=== PATIENT | female | born 1940 | race African-American/Black ===

== ENCOUNTER 2016-12-19 18:39 | Inpatient (IN) | payer MEDICARE, BC, OTHER ==
[2016-12-19] MEDS ORDERED: ACETAMINOPHEN 325 MG TABLET PO PRN (18:42)
[2016-12-19] MEDS ORDERED: ONDANSETRON HCL INJ/PF 4 MG/2 ML SDV IV PRN (18:42)
[2016-12-19] MEDS ORDERED: ONDANSETRON 4 MG TAB.RAPDIS PO PRN (18:42)
[2016-12-19] MEDS ORDERED: IPRATROPIUM/ALBUTEROL 0.5-2.5 MG/3 ML AMPUL NEB PRN (18:42)
--- NOTE | 2016-12-19 19:27 | PDOC H&P ---
History of Present Illness Admission Date/PCP: 12/19/16 18:39 KRISTIE CHRISTIANSON MD Patient complains of: Shortness of breath History of Present Illness: PAKO BLACKMAN is a 76 year old female who has a history of CVA in October 2016 at that time she was found to have a pleural effusion. Patient had a thoracentesis for removal of 1 L of fluid. Cytology that time was negative in the etiology of her effusion was unclear. The patient reports that when she went home in October she continued to have shortness of breath that has worsened. Patient is now found to have a left-sided whiteout of her hemothorax. The patient does report having some orthopnea PND as well as lower extremity edema. She denies any fevers or chills or night sweats. Denies any chest pain. She denies any palpitations. She does have some orthopnea and does have the lower extremity edema. She does have a history of tobacco abuse but has not smoked since 2007. Past Medical History Cardiac Medical History: Reports: Hypertension - Reported present but the patient denies. She is to be on diuretics., Peripheral Vascular Disease Denies: Congestive Heart Failure Pulmonary Medical History: Reports: Chronic Obstructive Pulmonary Disease (COPD) EENT Medical History: Reports: None Neurological Medical History: Reports: Ischemic CVA Endocrine Medical History: Reports: None Renal/ Medical History: Reports: None Malignancy Medical History: Reports: None GI Medical History: Reports: None Musculoskeltal Medical History: Reports: None Skin Medical History: Reports: None Psychiatric Medical History: Reports: None Denies: Depression Traumatic Medical History: Reports: None Hematology: Reports: None Infectious Medical History: Reports: None Past Surgical History Past Surgical History: Reports: Orthopedic Surgery - toes 1980 Social History Information Source: Patient Lives with: Family Smoking Status: Former Smoker Frequency of Alcohol Use: None Hx Recreational Drug Use: No Drugs: None Hx Prescription Drug Abuse: No - Advance Directive Resuscitation Status: Full Code Family History Family History: Hypertension Family History: Mother at age 89 and had no chronic health problems. Father at age 40 from an unspecified malignancy. Parental Family History Reviewed: Yes Children Family History Reviewed: No Sibling(s) Family History Reviewed.: No Medication/Allergy Home Medications: Aspirin/Dipyridamole [Aggrenox 25 mg/200 mg Capsule SA] 1 cap.sr PO Q12A #60 cpmp.12hr 10/20/16 Atorvastatin Calcium [Lipitor 40 mg Tablet] 40 mg PO QHS #30 tablet 10/20/16 Hydrochlorothiazide 0.5 tab PO DAILY #30 tablet 10/20/16 Allergies/Adverse Reactions: No Known Allergies Allergy (Unverified 10/16/16 14:03) Review of Systems Constitutional: ABSENT: chills, fever(s), headache(s), weight gain, weight loss Eyes: ABSENT: visual disturbances Ears: ABSENT: hearing changes Cardiovascular: PRESENT: edema, orthropnea. ABSENT: chest pain, dyspnea on exertion, palpitations Respiratory: PRESENT: dyspnea. ABSENT: cough, hemoptysis Gastrointestinal: ABSENT: abdominal pain, constipation, diarrhea, hematemesis, hematochezia, nausea, vomiting Genitourinary: ABSENT: dysuria, hematuria Musculoskeletal: ABSENT: joint swelling Integumentary: ABSENT: rash, wounds Neurological: ABSENT: abnormal gait, abnormal speech, confusion, dizziness, focal weakness, syncope Psychiatric: ABSENT: anxiety, depression Endocrine: ABSENT: cold intolerance, heat intolerance, polydipsia, polyuria Hematologic/Lymphatic: ABSENT: easy bleeding, easy bruising Physical Exam General appearance: PRESENT: mild distress Head exam: PRESENT: atraumatic, normocephalic Eye exam: PRESENT: conjunctiva pink, EOMI, PERRLA. ABSENT: scleral icterus Ear exam: PRESENT: normal external ear exam Mouth exam: PRESENT: moist, tongue midline Neck exam: ABSENT: carotid bruit, JVD, lymphadenopathy, thyromegaly Respiratory exam: PRESENT: decreased breath sounds - Decreased breath sounds in the left. ABSENT: rales, rhonchi, wheezes Cardiovascular exam: PRESENT: RRR. ABSENT: diastolic murmur, rubs, systolic murmur Pulses: PRESENT: normal dorsalis pedis pul Vascular exam: PRESENT: normal capillary refill GI/Abdominal exam: PRESENT: normal bowel sounds, soft. ABSENT: distended, guarding, mass, organolmegaly, rebound, tenderness Rectal exam: PRESENT: deferred Extremities exam: PRESENT: +1 edema. ABSENT: calf tenderness, clubbing Neurological exam: PRESENT: alert, awake, oriented to person, oriented to place , oriented to time, oriented to situation, CN II-XII grossly intact. ABSENT: motor sensory deficit Psychiatric exam: PRESENT: appropriate affect, normal mood Skin exam: PRESENT: dry, intact, warm. ABSENT: cyanosis, rash Assessment & Plan - Diagnosis (1) Pleural effusion Is this a current diagnosis for this admission?: YesPlan: The patient has had reaccumulation of the effusion since October when she last had a thoracentesis. Etiology of this is unknown. The differential includes congestive heart failure, malignancy, infectious. Cytology last time was negative. We will plan on a radiology guided chest tube for drainage. We'll send off the fluid for cytology as well as the usual studies. We'll check a BNP to make certain she does not have congestive heart failure. If the BNP is normal would not pursue this any further however she does have orthopnea PND and some lower extremity edema. Patient only has unilateral pleural effusion. He has not had any night sweats or fevers or chills or any other signs of infectious causes. We'll consult pulmonary medicine also. (2) Emphysema of lung Qualifiers: Is this a current diagnosis for this admission?: YesPlan: We'll give nebulizers as needed. (3) Atherosclerotic vascular disease Is this a current diagnosis for this admission?: YesPlan: Patient has a history of peripheral disease with carotid stenosis as well as subclavian stenosis. (4) Obesity Qualifiers: Is this a current diagnosis for this admission?: Yes (5) Hypercholesterolemia Is this a current diagnosis for this admission?: YesPlan: We'll continue with the Lipitor. (6) CVA (cerebral vascular accident) Is this a current diagnosis for this admission?: NoPlan: Patient had a CVA last month. We will stop the Aggrenox in anticipation of chest tube placement. - Time Time Spent: 50 to 70 Minutes - Inpatient Certification Medical Necessity: Need Close Monitoring Due to Risk of Patient Decompensation - Plan Summary Plan Summary: We'll admit as a regular inpatient as I anticipate his require greater than 2 midnight hospital stay.
[2016-12-19 20:14] LABS: PROTHROMBIN TIME 14.1 SEC (11.4-15.4)
[2016-12-19 20:15] LABS: PARTIAL THROMBOPLASTIN TIME 30.8 SEC (23.5-35.8)
[2016-12-19 20:19] LABS: ABSOLUTE EOSINOPHILS # (AUTO) 0.1 10^3/uL (0.0-0.6); ABSOLUTE NEUT (AUTO) 6.1 10^3/uL (1.7-8.2); BASOPHILS % (AUTO) 0.5 % (0-2); EOSINOPHILS % (AUTO) 1.7 % (0-6); HEMATOCRIT 39.3 % (36.0-47.0); HEMOGLOBIN 12.7 g/dL (12.0-15.5); HGB HCT DIFFERENCE -1.2; LYMPHOCYTES % (AUTO) 12.3 % (13-45); MEAN CORPUSCULAR HEMOGLOBIN 29.6 pg (27.0-33.4); MEAN CORPUSCULAR HGB CONC 32.4 g/dL (32.0-36.0); MEAN CORPUSCULAR VOLUME 91 fl (80-97); MONOCYTES % (AUTO) 11.5 % (3-13); RED BLOOD COUNT 4.31 10^6/uL (3.72-5.28); RED CELL DISTRIBUTION WIDTH 13.7 % (11.5-14.0); WHITE BLOOD COUNT 8.2 10^3/uL (4.0-10.5)
[2016-12-19 20:32] LABS: ALANINE AMINOTRANSFERASE 51 U/L (9-52); ALBUMIN 4.3 g/dL (3.5-5.0); ALKALINE PHOSPHATASE 95 U/L (38-126); ANION GAP 11 (5-19); ASPARTATE AMINO TRANSFERASE 38 U/L (14-36); BILIRUBIN,TOTAL 0.9 mg/dL (0.2-1.3); BLOOD UREA NITROGEN 18 mg/dL (7-20); CALCIUM 9.8 mg/dL (8.4-10.2); CARBON DIOXIDE 30 mmol/L (22-30); CHLORIDE 102 mmol/L (98-107); CREATININE RESULT 0.79 mg/dL (0.52-1.25); GLUCOSE 106 mg/dL (75-110); MAGNESIUM 2.1 mg/dL (1.6-2.3); SODIUM 142.6 mmol/L (137-145); TOTAL PROTEIN 7.6 g/dL (6.3-8.2)
[2016-12-19 20:58] LABS: THYROID STIMULATING HORMONE 2.59 uIU/mL (0.47-4.68)
[2016-12-20] MEDS: ATORVASTATIN CALCIUM 40 MG TABLET PO SCH ×2 (00:22→23:02)
--- NOTE | 2016-12-20 11:38 | EKG REPORT ---
SEVERITY:- NORMAL ECG - SINUS RHYTHM : Confirmed by: Ashkan White 20-Dec-2016 11:37:28
[2016-12-20] MEDS ORDERED: MIDAZOLAM 2 MG/2 ML INJ ONE (11:51)
[2016-12-20] MEDS ORDERED: FENTANYL CITRATE INJ/PF 100 MCG/2 ML AMPUL ONE (11:52)
[2016-12-20] MEDS: HYDROCHLOROTHIAZIDE 12.5 MG CAPSULE PO SCH (13:21)
--- NOTE | 2016-12-20 14:01 | PDOC PROGRESS REPORT ---
Subjective Progress Note for:: 12/20/16 Subjective:: Patient was examined prior to her thoracentesis and she reported that she had a good night but was short of breath with minimal exertion. Physical Exam Vital Signs: Temp Pulse Resp BP Pulse Ox 97.1 F 86 22 H 130/70 H 100 12/20/16 07:47 12/20/16 07:47 12/20/16 07:47 12/20/16 07:47 12/20/16 07:47 Intake & Output 12/19/16 12/20/16 12/21/16 06:59 06:59 06:59 Intake Total 240 Balance 240 Weight 106 kg General appearance: PRESENT: no acute distress Eye exam: PRESENT: conjunctiva pink. ABSENT: scleral icterus Mouth exam: PRESENT: moist, tongue midline Neck exam: ABSENT: JVD Respiratory exam: PRESENT: decreased breath sounds - Decreased breath sounds in the left chest field. Cardiovascular exam: PRESENT: RRR. ABSENT: diastolic murmur, rubs, systolic murmur GI/Abdominal exam: PRESENT: normal bowel sounds, soft. ABSENT: distended, guarding, mass, organolmegaly, rebound, tenderness Extremities exam: PRESENT: +1 edema. ABSENT: calf tenderness, clubbing Neurological exam: PRESENT: alert, awake, oriented to person, oriented to place , oriented to time, oriented to situation, CN II-XII grossly intact. ABSENT: motor sensory deficit Psychiatric exam: PRESENT: appropriate affect Skin exam: PRESENT: dry, intact, warm. ABSENT: cyanosis, rash Results Laboratory Results: 12/19/16 19:55 12/19/16 19:55 12/19/16 12/19/16 12/19/16 19:55 19:55 19:55 WBC 8.2 RBC 4.31 Hgb 12.7 Hct 39.3 MCV 91 MCH 29.6 MCHC 32.4 RDW 13.7 Plt Count 261 Seg Neutrophils % 74.0 Lymphocytes % 12.3 L Monocytes % 11.5 Eosinophils % 1.7 Basophils % 0.5 Absolute Neutrophils 6.1 Absolute Lymphocytes 1.0 Absolute Monocytes 1.0 Absolute Eosinophils 0.1 Absolute Basophils 0.0 Sodium 142.6 Potassium 4.0 Chloride 102 Carbon Dioxide 30 Anion Gap 11 BUN 18 Creatinine 0.79 Est GFR ( Amer) > 60 Est GFR (Non-Af Amer) > 60 Glucose 106 Calcium 9.8 Magnesium 2.1 Total Bilirubin 0.9 AST 38 H ALT 51 Alkaline Phosphatase 95 Total Protein 7.6 Albumin 4.3 TSH 2.59 Free T4 1.52 12/19/16 19:55 NT-Pro-B Natriuret Pep 59 Impressions: Chest X-Ray 12/20/16 00:00 IMPRESSION: No pneumothorax. Left pleural space catheter. Large left pleural effusion with left lower lobe collapse Thoracentesis 12/20/16 07:26 IMPRESSION: SUCCESSFUL CT GUIDED LEFT PIGTAIL CATHETER PLACEMENT. Assessment & Plan - Diagnosis (1) Pleural effusion Is this a current diagnosis for this admission?: YesPlan: The patient has had reaccumulation of the effusion since October when she last had a thoracentesis. Etiology of this is unknown. The differential includes congestive heart failure, malignancy, infectious. A BNP however was done last night and it was normal and so is unlikely to be related to cardiac issues. Cytology last time was negative. Radiology placed a chest tube today and seminal studies. We'll send off the fluid for cytology as well as the usual studies. Patient only has unilateral pleural effusion. She has not had any night sweats or fevers or chills or any other signs of infectious causes. Pulmonary has been consulted. (2) Emphysema of lung Qualifiers: Is this a current diagnosis for this admission?: YesPlan: We'll give nebulizers as needed. (3) Atherosclerotic vascular disease Is this a current diagnosis for this admission?: YesPlan: Patient has a history of peripheral disease with carotid stenosis as well as subclavian stenosis. (4) Obesity Qualifiers: Is this a current diagnosis for this admission?: Yes (5) Hypercholesterolemia Is this a current diagnosis for this admission?: YesPlan: We'll continue with the Lipitor. (6) CVA (cerebral vascular accident) Is this a current diagnosis for this admission?: NoPlan: Patient had a CVA last month. Aggrenox was held because of the chest tube placement. Will restart it tomorrow. - Time Time Spent with patient: 25-34 minutes - Inpatient Certification Medical Necessity: Need Close Monitoring Due to Risk of Patient Decompensation - Plan Summary Plan Summary: Will await cytology and chemistry studies from the thoracentesis.
[2016-12-20 14:09] LABS: FLUID TYPE PLEURAL
[2016-12-20 14:10] LABS: FLUID APPEARANCE CLOUDY; FLUID RBC AVERAGE 149.5; FLUID RBC DILUENT USED SALINE; FLUID RBC DILUTION FACTOR 10; FLUID RBC SIDE 1 157; FLUID RBC SIDE 2 142; TOTAL RBC SQUARES COUNTED FLD 25
[2016-12-21 04:56] LABS: ABSOLUTE EOSINOPHILS # (AUTO) 0.2 10^3/uL (0.0-0.6); ABSOLUTE LYMPHOCYTES (AUTO) 0.9 10^3/uL (0.5-4.7); ABSOLUTE MONOCYTES (AUTO) 0.9 10^3/uL (0.1-1.4); BASOPHILS % (AUTO) 0.6 % (0-2); EOSINOPHILS % (AUTO) 2.5 % (0-6); HEMATOCRIT 35.8 % (36.0-47.0); HEMOGLOBIN 11.8 g/dL (12.0-15.5); HGB HCT DIFFERENCE -0.4; LYMPHOCYTES % (AUTO) 12.6 % (13-45); MEAN CORPUSCULAR HEMOGLOBIN 29.8 pg (27.0-33.4); MEAN CORPUSCULAR VOLUME 90 fl (80-97); MONOCYTES % (AUTO) 12.3 % (3-13); RED BLOOD COUNT 3.97 10^6/uL (3.72-5.28); RED CELL DISTRIBUTION WIDTH 13.6 % (11.5-14.0)
[2016-12-21 05:16] LABS: BLOOD UREA NITROGEN 15 mg/dL (7-20); CALCIUM 8.9 mg/dL (8.4-10.2); CREATININE RESULT 0.72 mg/dL (0.52-1.25); GLUCOSE 99 mg/dL (75-110); POTASSIUM 3.9 mmol/L (3.6-5.0)
[2016-12-21 05:24] LABS: ANION GAP 7 (5-19); CARBON DIOXIDE 31 mmol/L (22-30); CHLORIDE 104 mmol/L (98-107); SODIUM 141.8 mmol/L (137-145)
[2016-12-21] MEDS: HYDROCHLOROTHIAZIDE 12.5 MG CAPSULE PO SCH (08:49)
--- NOTE | 2016-12-21 11:58 | PDOC PROGRESS REPORT ---
Subjective Progress Note for:: 12/21/16 Subjective:: Patient reports that her breathing is improving. She had a chest x-ray this morning that shows a 15% pneumothorax. This was with her Pleur-evac set to water seal. Physical Exam Vital Signs: Temp Pulse Resp BP Pulse Ox 98.4 F 84 18 125/67 100 12/21/16 10:57 12/21/16 11:11 12/21/16 11:11 12/21/16 10:57 12/21/16 10:57 Intake & Output 12/20/16 12/21/16 12/22/16 06:59 06:59 06:59 Intake Total 240 30 Output Total 2300 Balance 240 -2270 Weight 106 kg 106 kg General appearance: PRESENT: no acute distress Eye exam: PRESENT: conjunctiva pink. ABSENT: scleral icterus Mouth exam: PRESENT: moist, tongue midline Neck exam: ABSENT: JVD Respiratory exam: ABSENT: rales, rhonchi, wheezes Cardiovascular exam: PRESENT: RRR. ABSENT: diastolic murmur, rubs, systolic murmur GI/Abdominal exam: PRESENT: normal bowel sounds, soft. ABSENT: distended, guarding, mass, organolmegaly, rebound, tenderness Extremities exam: ABSENT: calf tenderness, clubbing, pedal edema Neurological exam: PRESENT: alert, awake, oriented to person, oriented to place , oriented to time, oriented to situation Psychiatric exam: PRESENT: appropriate affect Skin exam: PRESENT: dry, intact, warm. ABSENT: cyanosis, rash Results Laboratory Results: 12/21/16 04:43 12/21/16 04:43 12/20/16 12/20/16 12/21/16 12:10 12:10 04:43 WBC 7.0 RBC 3.97 Hgb 11.8 L Hct 35.8 L MCV 90 MCH 29.8 MCHC 33.0 RDW 13.6 Plt Count 232 Seg Neutrophils % 72.0 Lymphocytes % 12.6 L Monocytes % 12.3 Eosinophils % 2.5 Basophils % 0.6 Absolute Neutrophils 5.0 Absolute Lymphocytes 0.9 Absolute Monocytes 0.9 Absolute Eosinophils 0.2 Absolute Basophils 0.0 Sodium Potassium Chloride Carbon Dioxide Anion Gap BUN Creatinine Est GFR ( Amer) Est GFR (Non-Af Amer) Glucose Calcium Fluid Type PLEURAL Fluid Source LUNG Fluid Color LYNNE Fluid Appearance CLOUDY Fluid Viscosity LIQUID Fluid WBC 867 Fluid RBC 31678 Fluid Total Protein 4.8 Fluid LDH 309 12/21/16 04:43 WBC RBC Hgb Hct MCV MCH MCHC RDW Plt Count Seg Neutrophils % Lymphocytes % Monocytes % Eosinophils % Basophils % Absolute Neutrophils Absolute Lymphocytes Absolute Monocytes Absolute Eosinophils Absolute Basophils Sodium 141.8 Potassium 3.9 Chloride 104 Carbon Dioxide 31 H Anion Gap 7 BUN 15 Creatinine 0.72 Est GFR ( Amer) > 60 Est GFR (Non-Af Amer) > 60 Glucose 99 Calcium 8.9 Fluid Type Fluid Source Fluid Color Fluid Appearance Fluid Viscosity Fluid WBC Fluid RBC Fluid Total Protein Fluid LDH 12/19/16 19:55 NT-Pro-B Natriuret Pep 59 Impressions: Thoracentesis 12/20/16 07:26 IMPRESSION: SUCCESSFUL CT GUIDED LEFT PIGTAIL CATHETER PLACEMENT. Chest X-Ray 12/21/16 10:00 IMPRESSION: 15% left pneumothorax. Findings discussed with the hospitalist attending physician Resolved left pleural effusion Persistent collapse and consolidation in the left lower lobe and lingula Assessment & Plan - Diagnosis (1) Pleural effusion Is this a current diagnosis for this admission?: YesPlan: The patient has had reaccumulation of the effusion since October when she last had a thoracentesis. Etiology of this is unknown. The differential includes congestive heart failure, malignancy, infectious. A BNP however was done and it was normal and so is unlikely to be related to cardiac issues. Cytology last time was negative. The case was discussed with the radiologist who preliminary looked at the cells do not see any malignancy. However she is going to do a cell block and will have final results on Saturday afternoon. The patient has a 50% pneumothorax and will be hooked back up to suction. Pulmonary has been consulted. (2) Emphysema of lung Qualifiers: Is this a current diagnosis for this admission?: YesPlan: We'll give nebulizers as needed. (3) Atherosclerotic vascular disease Is this a current diagnosis for this admission?: YesPlan: Patient has a history of peripheral disease with carotid stenosis as well as subclavian stenosis. (4) Obesity Qualifiers: Is this a current diagnosis for this admission?: Yes (5) Hypercholesterolemia Is this a current diagnosis for this admission?: YesPlan: We'll continue with the Lipitor. (6) CVA (cerebral vascular accident) Is this a current diagnosis for this admission?: NoPlan: Patient had a CVA last month. Aggrenox was held because of the chest tube placement. Will restart today. - Time Time Spent with patient: 25-34 minutes - Inpatient Certification Medical Necessity: Need Close Monitoring Due to Risk of Patient Decompensation - Plan Summary Plan Summary: We'll continue with the Pleur-evac to suction.
[2016-12-21] MEDS: ATORVASTATIN CALCIUM 40 MG TABLET PO SCH (21:27)
[2016-12-22 04:54] LABS: ABSOLUTE EOSINOPHILS # (AUTO) 0.2 10^3/uL (0.0-0.6); ABSOLUTE LYMPHOCYTES (AUTO) 0.9 10^3/uL (0.5-4.7); ABSOLUTE MONOCYTES (AUTO) 0.9 10^3/uL (0.1-1.4); ABSOLUTE NEUT (AUTO) 4.3 10^3/uL (1.7-8.2); BASOPHILS % (AUTO) 0.6 % (0-2); EOSINOPHILS % (AUTO) 3.9 % (0-6); HEMATOCRIT 36.7 % (36.0-47.0); HEMOGLOBIN 11.9 g/dL (12.0-15.5); LYMPHOCYTES % (AUTO) 14.3 % (13-45); MEAN CORPUSCULAR HEMOGLOBIN 29.2 pg (27.0-33.4); MEAN CORPUSCULAR HGB CONC 32.4 g/dL (32.0-36.0); MEAN CORPUSCULAR VOLUME 90 fl (80-97); MONOCYTES % (AUTO) 14.2 % (3-13); RED BLOOD COUNT 4.08 10^6/uL (3.72-5.28); RED CELL DISTRIBUTION WIDTH 13.6 % (11.5-14.0); WHITE BLOOD COUNT 6.4 10^3/uL (4.0-10.5)
[2016-12-22 05:18] LABS: ANION GAP 7 (5-19); BLOOD UREA NITROGEN 12 mg/dL (7-20); CALCIUM 8.7 mg/dL (8.4-10.2); CARBON DIOXIDE 31 mmol/L (22-30); CHLORIDE 102 mmol/L (98-107); CREATININE RESULT 0.76 mg/dL (0.52-1.25); GLUCOSE 107 mg/dL (75-110); POTASSIUM 3.8 mmol/L (3.6-5.0); SODIUM 140.1 mmol/L (137-145)
[2016-12-22] MEDS: ASPIRIN/DIPYRIDAMOLE 25-200 MG 1 CAP.SR CPMP.12HR PO SCH (09:10)
[2016-12-22] MEDS: HYDROCHLOROTHIAZIDE 12.5 MG CAPSULE PO SCH (09:11)
--- NOTE | 2016-12-22 12:44 | PDOC PROGRESS REPORT ---
Subjective Progress Note for:: 12/22/16 Subjective:: Patient denies any complaints. Physical Exam Vital Signs: Temp Pulse Resp BP Pulse Ox 98.8 F 85 18 120/62 100 12/22/16 07:54 12/22/16 07:54 12/22/16 07:54 12/22/16 07:54 12/22/16 11:56 Intake & Output 12/21/16 12/22/16 12/23/16 06:59 06:59 06:59 Intake Total 30 1393 Output Total 2300 102 Balance -2270 1291 Weight 106 kg 102.2 kg General appearance: PRESENT: no acute distress Head exam: PRESENT: atraumatic, normocephalic Eye exam: PRESENT: conjunctiva pink. ABSENT: scleral icterus Mouth exam: PRESENT: moist, tongue midline Neck exam: ABSENT: JVD Respiratory exam: PRESENT: rhonchi - Coarse rhonchi on the left.. ABSENT: rales , wheezes Cardiovascular exam: PRESENT: RRR. ABSENT: diastolic murmur, rubs, systolic murmur GI/Abdominal exam: PRESENT: normal bowel sounds, soft. ABSENT: distended, guarding, mass, organolmegaly, rebound, tenderness Extremities exam: ABSENT: calf tenderness, clubbing, pedal edema Neurological exam: PRESENT: alert, awake, oriented to person, oriented to place , oriented to time, oriented to situation Psychiatric exam: PRESENT: appropriate affect Skin exam: PRESENT: dry, intact, warm. ABSENT: cyanosis, rash Results Laboratory Results: 12/22/16 04:44 12/22/16 04:44 12/22/16 12/22/16 04:44 04:44 WBC 6.4 RBC 4.08 Hgb 11.9 L Hct 36.7 MCV 90 MCH 29.2 MCHC 32.4 RDW 13.6 Plt Count 240 Seg Neutrophils % 67.0 Lymphocytes % 14.3 Monocytes % 14.2 H Eosinophils % 3.9 Basophils % 0.6 Absolute Neutrophils 4.3 Absolute Lymphocytes 0.9 Absolute Monocytes 0.9 Absolute Eosinophils 0.2 Absolute Basophils 0.0 Sodium 140.1 Potassium 3.8 Chloride 102 Carbon Dioxide 31 H Anion Gap 7 BUN 12 Creatinine 0.76 Est GFR ( Amer) > 60 Est GFR (Non-Af Amer) > 60 Glucose 107 Calcium 8.7 12/20/16 12:10 Pleural Fluid - Left Pleural Effusion AFB Smear Concentration - Final 12/20/16 12:10 Pleural Fluid - Left Pleural Effusion Acid Fast Bacilli Smear - Final 12/19/16 19:55 NT-Pro-B Natriuret Pep 59 Impressions: Thoracentesis 12/20/16 07:26 IMPRESSION: SUCCESSFUL CT GUIDED LEFT PIGTAIL CATHETER PLACEMENT. Chest X-Ray 12/22/16 00:00 IMPRESSION: Pneumothorax has resolved. Possible slight increase in left effusion. Parenchymal opacities on the left stable. Assessment & Plan - Diagnosis (1) Pleural effusion Is this a current diagnosis for this admission?: YesPlan: The patient has had reaccumulation of the effusion since October when she last had a thoracentesis. Etiology of this is unknown. Cytology last time was negative. The case was discussed with the radiologist who preliminary looked at the cells do not see any malignancy. However she is going to do a cell block and will have final results on Saturday afternoon. We will continue with the Pleur-evac for now. (2) Emphysema of lung Qualifiers: Is this a current diagnosis for this admission?: YesPlan: We'll give nebulizers as needed. (3) Atherosclerotic vascular disease Is this a current diagnosis for this admission?: YesPlan: Patient has a history of peripheral disease with carotid stenosis as well as subclavian stenosis. (4) Obesity Qualifiers: Is this a current diagnosis for this admission?: Yes (5) Hypercholesterolemia Is this a current diagnosis for this admission?: YesPlan: We'll continue with the Lipitor. (6) CVA (cerebral vascular accident) Is this a current diagnosis for this admission?: NoPlan: Patient had a CVA last month. Continue Aggrenox. - Time Time Spent with patient: 25-34 minutes - Inpatient Certification Medical Necessity: Need Close Monitoring Due to Risk of Patient Decompensation
[2016-12-22] MEDS: ATORVASTATIN CALCIUM 40 MG TABLET PO SCH (22:26)
[2016-12-23] MEDS: HYDROCHLOROTHIAZIDE 12.5 MG CAPSULE PO SCH (09:56)
[2016-12-23] MEDS: ASPIRIN/DIPYRIDAMOLE 25-200 MG 1 CAP.SR CPMP.12HR PO SCH (09:57)
--- NOTE | 2016-12-23 12:10 | PDOC PROGRESS REPORT ---
Subjective Progress Note for:: 12/23/16 Subjective:: Patient denies any complaints. Physical Exam Vital Signs: Temp Pulse Resp BP Pulse Ox 98.6 F 73 20 130/67 H 100 12/23/16 07:53 12/23/16 07:53 12/23/16 07:53 12/23/16 07:53 12/23/16 07:53 Intake & Output 12/22/16 12/23/16 12/24/16 06:59 06:59 06:59 Intake Total 1393 730 Output Total 102 Balance 1291 730 Weight 102.2 kg 103.2 kg General appearance: PRESENT: no acute distress Eye exam: PRESENT: conjunctiva pink. ABSENT: scleral icterus Mouth exam: PRESENT: moist, tongue midline Neck exam: ABSENT: JVD Respiratory exam: PRESENT: clear to auscultation chiki. ABSENT: rales, rhonchi, wheezes Cardiovascular exam: PRESENT: RRR. ABSENT: diastolic murmur, rubs, systolic murmur GI/Abdominal exam: PRESENT: normal bowel sounds, soft. ABSENT: distended, guarding, mass, organolmegaly, rebound, tenderness Extremities exam: ABSENT: calf tenderness, clubbing, pedal edema Neurological exam: PRESENT: alert, awake, oriented to person, oriented to place , oriented to time, oriented to situation, CN II-XII grossly intact. ABSENT: motor sensory deficit Skin exam: PRESENT: dry, intact, warm. ABSENT: cyanosis, rash Results Laboratory Results: 12/22/16 04:44 12/22/16 04:44 12/20/16 12:10 Pleural Fluid - Left Pleural Effusion Fungal Smear - Final 12/20/16 12:10 Pleural Fluid - Left Pleural Effusion Fungal Smear - Final 12/20/16 12:10 Pleural Fluid - Left Pleural Effusion Fungal Smear - Final 12/20/16 12:10 Pleural Fluid - Left Pleural Effusion AFB Smear Concentration - Final 12/20/16 12:10 Pleural Fluid - Left Pleural Effusion Acid Fast Bacilli Smear - Final 12/19/16 19:55 NT-Pro-B Natriuret Pep 59 Impressions: Thoracentesis 12/20/16 07:26 IMPRESSION: SUCCESSFUL CT GUIDED LEFT PIGTAIL CATHETER PLACEMENT. Chest X-Ray 12/23/16 00:00 IMPRESSION: No left pneumothorax or pleural effusion Left lung alveolar and interstitial infiltrates in the mid and lower lung, similar compared to previous film Assessment & Plan - Diagnosis (1) Pleural effusion Is this a current diagnosis for this admission?: YesPlan: The patient has had reaccumulation of the effusion since October when she last had a thoracentesis. Etiology of this is unknown. Cytology last time was negative. The case was discussed with the radiologist who preliminary looked at the cells do not see any malignancy. However she is going to do a cell block and will have final results on Saturday afternoon. We will place the pleuro -vac to [facility] today and plan to remove the chest tube tomorrow if she does not have any reaccumulation. (2) Emphysema of lung Qualifiers: Is this a current diagnosis for this admission?: YesPlan: We'll give nebulizers as needed. (3) Atherosclerotic vascular disease Is this a current diagnosis for this admission?: YesPlan: Patient has a history of peripheral disease with carotid stenosis as well as subclavian stenosis. (4) Obesity Qualifiers: Is this a current diagnosis for this admission?: Yes (5) Hypercholesterolemia Is this a current diagnosis for this admission?: YesPlan: We'll continue with the Lipitor. (6) CVA (cerebral vascular accident) Is this a current diagnosis for this admission?: NoPlan: Patient had a CVA last month. Continue Aggrenox. - Time Time Spent with patient: 25-34 minutes - Inpatient Certification Medical Necessity: Need Close Monitoring Due to Risk of Patient Decompensation
[2016-12-23] MEDS: ATORVASTATIN CALCIUM 40 MG TABLET PO SCH (21:41)
[2016-12-24] MEDS: HYDROCHLOROTHIAZIDE 12.5 MG CAPSULE PO SCH (08:41)
[2016-12-24] MEDS: ASPIRIN/DIPYRIDAMOLE 25-200 MG 1 CAP.SR CPMP.12HR PO SCH (10:16)
--- NOTE | 2016-12-24 16:57 | PDOC PROGRESS REPORT ---
Subjective Progress Note for:: 12/24/16 Subjective:: Patient denies any complaints. The patient had her chest tube removed today. We are waiting on the follow-up films to make certain that she does not have any significant pneumothorax. Pathology on her pleural fluid shows cells that are suspicious for carcinoma. Pathology is doing further stains. Dr. Galo has been consulted and he is recommended a CT scan of the head chest abdomen and pelvis as well as a bone scan. These have been ordered. Will repeat a chest x-ray in the morning and if that is okay she can be discharged after she is evaluated by oncology. Physical Exam Vital Signs: Temp Pulse Resp BP Pulse Ox 98.7 F 81 18 117/90 H 99 12/24/16 15:33 12/24/16 15:33 12/24/16 15:33 12/24/16 15:33 12/24/16 15:33 Intake & Output 12/23/16 12/24/16 12/25/16 06:59 06:59 06:59 Intake Total 730 1506 474 Output Total 1 Balance 730 1506 473 Weight 103.2 kg 103.6 kg General appearance: PRESENT: no acute distress Eye exam: PRESENT: conjunctiva pink. ABSENT: scleral icterus Mouth exam: PRESENT: moist, tongue midline Neck exam: ABSENT: carotid bruit, JVD, lymphadenopathy, thyromegaly Respiratory exam: PRESENT: clear to auscultation chiki. ABSENT: rales, rhonchi, wheezes Cardiovascular exam: PRESENT: RRR. ABSENT: diastolic murmur, rubs, systolic murmur GI/Abdominal exam: PRESENT: normal bowel sounds, soft. ABSENT: distended, guarding, mass, organolmegaly, rebound, tenderness Extremities exam: ABSENT: calf tenderness, clubbing, pedal edema Neurological exam: PRESENT: alert, awake, oriented to person, oriented to place , oriented to time, oriented to situation Psychiatric exam: PRESENT: appropriate affect Skin exam: PRESENT: dry, intact, warm. ABSENT: cyanosis, rash Results Laboratory Results: 12/22/16 04:44 12/22/16 04:44 12/20/16 12:10 Pleural Fluid Gram Stain - Final 12/20/16 12:10 Pleural Fluid Body Fluid Culture - Final NO AEROBIC OR ANAEROBIC ORGANISMS RECOVERED 12/19/16 19:55 NT-Pro-B Natriuret Pep 59 Impressions: Thoracentesis 12/20/16 07:26 IMPRESSION: SUCCESSFUL CT GUIDED LEFT PIGTAIL CATHETER PLACEMENT. Chest X-Ray 12/24/16 16:52 IMPRESSION: Status post removal of the pleural drainage catheter on the left. Very tiny left apical pneumothorax is identified. Other findings as noted above. Assessment & Plan - Diagnosis (1) Pleural effusion Is this a current diagnosis for this admission?: YesPlan: The patient has had reaccumulation of the effusion since October when she last had a thoracentesis. The patient's cytology is suspicious for carcinoma per pathology. Further stains are pending. Because of her history of smoking this most likely represents lung carcinoma. Oncology has been consulted and they have recommended that we get a head CT, chest CT, abdominal and pelvic CT. Also ordered is a bone scan. If the patient's left lung is clear tomorrow with no evidence for pneumothorax she can most likely be discharged tomorrow after evaluation by oncology. (2) Emphysema of lung Qualifiers: Is this a current diagnosis for this admission?: YesPlan: We'll give nebulizers as needed. (3) Atherosclerotic vascular disease Is this a current diagnosis for this admission?: YesPlan: Patient has a history of peripheral disease with carotid stenosis as well as subclavian stenosis. (4) Obesity Qualifiers: Is this a current diagnosis for this admission?: Yes (5) Hypercholesterolemia Is this a current diagnosis for this admission?: YesPlan: We'll continue with the Lipitor. (6) CVA (cerebral vascular accident) Is this a current diagnosis for this admission?: NoPlan: Patient had a CVA last month. Continue Aggrenox. - Time Time Spent with patient: 25-34 minutes - Inpatient Certification Medical Necessity: Need Close Monitoring Due to Risk of Patient Decompensation - Plan Summary Plan Summary: We'll get an oncology consultation tomorrow as well as the testing listed above. After that she should be able to be discharged to home.
--- NOTE | 2016-12-24 17:58 | PDOC CONSULTATION ---
Consultation Consult Date: 12/24/16 Attending physician:: OMA DEXTER Consult reason:: Malignant pleural effusion History of Present Illness Admission Date/PCP: 12/19/16 18:42 KRISTIE CHRISTIANSON MD Patient complains of: Recent shortness of breath and left pleural effusion History of Present Illness: 76-year-old female with recent recurrent left pleural effusion. She initially noted worsening breathing about 3 months ago, ultimately she presented in September with worsening shortness of breath, at that time CT imaging indicated a large left pleural effusion, she had thoracentesis done and initially that cytology was negative, it was felt to possibly be a parapneumonic effusion, she was then sent home. She then returns with worsening shortness of breath again, she tells me after the thoracentesis she actually felt the fluid "filled back up ". Upon presentation she had a large left pleural effusion that was recurrent, she had a chest tube placed, and recently the chest tube stopped draining so was removed today. The cytology came back today, this indicates atypical cells concerning for carcinoma, I discussed her case with the pathologist to feels like there'll be enough tissue for immunohistochemistry. This will help better delineate the carcinoma. She had nearly a [id number] history of tobacco, quit in 2007. She hasn't had any recent weight loss and is not having any pain anywhere else. Past Medical History Cardiac Medical History: Reports: Hypertension - Reported present but the patient denies. She is to be on diuretics., Peripheral Vascular Disease Denies: Congestive Heart Failure Pulmonary Medical History: Reports: Chronic Obstructive Pulmonary Disease (COPD) EENT Medical History: Reports: None Neurological Medical History: Reports: Ischemic CVA Endocrine Medical History: Reports: None Renal/ Medical History: Reports: None Malignancy Medical History: Reports: None GI Medical History: Reports: None Musculoskeltal Medical History: Reports: None Skin Medical History: Reports: None Psychiatric Medical History: Reports: None Denies: Depression Traumatic Medical History: Reports: None Hematology: Reports: None Infectious Medical History: Reports: None Past Surgical History Past Surgical History: Reports: Orthopedic Surgery - toes 1979, Other - Thoracentesis, chest tube Social History Information Source: Patient Lives with: Family Smoking Status: Former Smoker Number of Years Smokin Last Time Smoked: 2007 Frequency of Alcohol Use: None Hx Recreational Drug Use: No Drugs: None Hx Prescription Drug Abuse: No - Advance Directive Resuscitation Status: Full Code Family History Family History: Hypertension Parental Family History Reviewed: Yes Children Family History Reviewed: Yes Sibling(s) Family History Reviewed.: Yes Medication/Allergy Home Medications: Aspirin/Dipyridamole [Aggrenox 25 mg-200 mg Capsule] 1 cap PO Q12 12/19/16 Atorvastatin Calcium [Lipitor 40 mg Tablet] 40 mg PO QHS 12/19/16 Hydrochlorothiazide 12.5 mg PO DAILY 12/19/16 Allergies/Adverse Reactions: No Known Allergies Allergy (Unverified 10/16/16 14:03) Review of Systems Constitutional: ABSENT: chills, fever(s), headache(s), weight gain, weight loss Eyes: ABSENT: visual disturbances Ears: ABSENT: hearing changes Cardiovascular: ABSENT: chest pain, dyspnea on exertion, edema, orthropnea, palpitations Respiratory: PRESENT: dyspnea Gastrointestinal: ABSENT: abdominal pain, constipation, diarrhea, hematemesis, hematochezia, nausea, vomiting Genitourinary: ABSENT: dysuria, hematuria Musculoskeletal: ABSENT: joint swelling Integumentary: ABSENT: rash, wounds Neurological: ABSENT: abnormal gait, abnormal speech, confusion, dizziness, focal weakness, syncope Psychiatric: ABSENT: anxiety, depression, homidical ideation, suicidal ideation Endocrine: ABSENT: cold intolerance, heat intolerance, polydipsia, polyuria Hematologic/Lymphatic: ABSENT: easy bleeding, easy bruising Physical Exam Vital Signs: Temp Pulse Resp BP Pulse Ox 98.7 F 81 18 117/90 H 99 12/24/16 15:33 12/24/16 15:33 12/24/16 15:33 12/24/16 15:33 12/24/16 15:33 Intake & Output 12/23/16 12/24/16 12/25/16 06:59 06:59 06:59 Intake Total 730 1506 474 Output Total 1 Balance 730 1506 473 Weight 103.2 kg 103.6 kg General appearance: PRESENT: no acute distress, well-developed, well-nourished Head exam: PRESENT: atraumatic, normocephalic Eye exam: PRESENT: conjunctiva pink, EOMI, PERRLA. ABSENT: scleral icterus Ear exam: PRESENT: normal external ear exam Mouth exam: PRESENT: moist, tongue midline Neck exam: ABSENT: carotid bruit, JVD, lymphadenopathy, thyromegaly Respiratory exam: PRESENT: clear to auscultation chiki. ABSENT: rales, rhonchi, wheezes Cardiovascular exam: PRESENT: RRR. ABSENT: diastolic murmur, rubs, systolic murmur Pulses: PRESENT: normal dorsalis pedis pul Vascular exam: PRESENT: normal capillary refill GI/Abdominal exam: PRESENT: normal bowel sounds, soft. ABSENT: distended, guarding, mass, organolmegaly, rebound, tenderness Rectal exam: PRESENT: deferred Extremities exam: PRESENT: full ROM. ABSENT: calf tenderness, clubbing, pedal edema Neurological exam: PRESENT: alert, awake, oriented to person, oriented to place , oriented to time, oriented to situation, CN II-XII grossly intact. ABSENT: motor sensory deficit Psychiatric exam: PRESENT: appropriate affect, normal mood. ABSENT: homicidal ideation, suicidal ideation Skin exam: PRESENT: dry, intact, warm. ABSENT: cyanosis, rash Results Laboratory Results: 12/22/16 04:44 12/22/16 04:44 12/20/16 12:10 Pleural Fluid Gram Stain - Final 12/20/16 12:10 Pleural Fluid Body Fluid Culture - Final NO AEROBIC OR ANAEROBIC ORGANISMS RECOVERED 12/19/16 19:55 NT-Pro-B Natriuret Pep 59 Impressions: Thoracentesis 12/20/16 07:26 IMPRESSION: SUCCESSFUL CT GUIDED LEFT PIGTAIL CATHETER PLACEMENT. Chest X-Ray 12/24/16 16:52 IMPRESSION: Status post removal of the pleural drainage catheter on the left. Very tiny left apical pneumothorax is identified. Other findings as noted above. Status: Image reviewed by me Assessment & Plan - Diagnosis (1) Malignant pleural effusion Is this a current diagnosis for this admission?: YesPlan: She appears to have a malignant pleural effusion, better delineation of cytology by tomorrow hopefully, we will need to fully stage her with CT of the chest abdomen pelvis, head as well as bone scan. This would most likely be a primary lung malignancy, given her strong smoking history, today we discussed that. We will follow-up this testing. - Time Time Spent: Greater than 70 Minutes Critical Time spent with patient: 35 or more minutes Anticipated discharge: Home Within: within 24 hours - Inpatient Certification Based on my medical assessment, after consideration of the patient's comorbidities, presenting symptoms, or acuity I expect that the services needed warrant INPATIENT care.: Yes I certify that my determination is in accordance with my understanding of Medicare's requirements for reasonable and necessary INPATIENT services [42 CFR 412.3e].: Yes Medical Necessity: Need For Continuous Telemetry Monitoring, Risk of Complication if Not Cared For in Hospital
[2016-12-25] MEDS: ATORVASTATIN CALCIUM 40 MG TABLET PO SCH (01:14)
[2016-12-25] MEDS: HYDROCHLOROTHIAZIDE 12.5 MG CAPSULE PO SCH (08:35)
--- NOTE | 2016-12-25 09:01 | PDOC PROGRESS REPORT ---
Subjective Progress Note for:: 12/25/16 Subjective:: No acute events overnight, today spent long discussion with the patient going over CT imaging, spent about 45 minutes in discussion Physical Exam Vital Signs: Temp Pulse Resp BP Pulse Ox 98.0 F 77 18 121/68 100 12/25/16 07:45 12/25/16 07:45 12/25/16 07:45 12/25/16 07:45 12/25/16 07:45 Intake & Output 12/24/16 12/25/16 12/26/16 06:59 06:59 06:59 Intake Total 1506 1729 Output Total 1 Balance 1506 1728 Weight 103.6 kg 102.9 kg General appearance: PRESENT: no acute distress, well-developed, well-nourished Head exam: PRESENT: atraumatic, normocephalic Eye exam: PRESENT: conjunctiva pink, EOMI, PERRLA. ABSENT: scleral icterus Ear exam: PRESENT: normal external ear exam Mouth exam: PRESENT: moist, tongue midline Neck exam: ABSENT: carotid bruit, JVD, lymphadenopathy, thyromegaly Respiratory exam: PRESENT: clear to auscultation chiki. ABSENT: rales, rhonchi, wheezes Cardiovascular exam: PRESENT: RRR. ABSENT: diastolic murmur, rubs, systolic murmur Pulses: PRESENT: normal dorsalis pedis pul Vascular exam: PRESENT: normal capillary refill GI/Abdominal exam: PRESENT: normal bowel sounds, soft. ABSENT: distended, guarding, mass, organolmegaly, rebound, tenderness Rectal exam: PRESENT: deferred Extremities exam: PRESENT: full ROM. ABSENT: calf tenderness, clubbing, pedal edema Neurological exam: PRESENT: alert, awake, oriented to person, oriented to place , oriented to time, oriented to situation, CN II-XII grossly intact. ABSENT: motor sensory deficit Psychiatric exam: PRESENT: appropriate affect, normal mood. ABSENT: homicidal ideation, suicidal ideation Skin exam: PRESENT: dry, intact, warm. ABSENT: cyanosis, rash Results Laboratory Results: 12/22/16 04:44 12/22/16 04:44 12/20/16 12:10 Pleural Fluid Gram Stain - Final 12/20/16 12:10 Pleural Fluid Body Fluid Culture - Final NO AEROBIC OR ANAEROBIC ORGANISMS RECOVERED 12/19/16 19:55 NT-Pro-B Natriuret Pep 59 Impressions: Thoracentesis 12/20/16 07:26 IMPRESSION: SUCCESSFUL CT GUIDED LEFT PIGTAIL CATHETER PLACEMENT. Abdomen/Pelvis CT 12/24/16 00:00 IMPRESSION: SMALL TO MODERATE RESIDUAL LEFT HYDROPNEUMOTHORAX STATUS POST REMOVAL OF CHEST TUBE. THERE IS NEW INTERSTITIAL THICKENING INVOLVING THE LEFT LUNG WITH MINIMAL LEFT LOWER LOBE AIRSPACE DISEASE SUBSEGMENTAL ATELECTASIS. PRESUMABLY THIS REPRESENTS RE-EXPANSION PULMONARY EDEMA HOWEVER LYMPHANGITIC SPREAD OF MALIGNANCY REMAINS IN THE DIFFERENTIAL. MILD SOFT TISSUE FULLNESS INVOLVING THE LEFT HILUM WITHOUT DISCRETE MASS OR ADENOPATHY. THIS IS NONSPECIFIC ING COULD BE INFECTIOUS, INFLAMMATORY, OR NEOPLASTIC. CORRELATE WITH HISTORY OF PRIMARY LUNG MALIGNANCY/BRONCHOSCOPY. NO CT EVIDENCE OF METASTATIC DISEASE WITHIN THE ABDOMEN OR PELVIS. ADDITIONAL CHRONIC CHANGES ABOVE. Chest CT 12/24/16 00:00 IMPRESSION: SMALL TO MODERATE RESIDUAL LEFT HYDROPNEUMOTHORAX STATUS POST REMOVAL OF CHEST TUBE. THERE IS NEW INTERSTITIAL THICKENING INVOLVING THE LEFT LUNG WITH MINIMAL LEFT LOWER LOBE AIRSPACE DISEASE SUBSEGMENTAL ATELECTASIS. PRESUMABLY THIS REPRESENTS RE-EXPANSION PULMONARY EDEMA HOWEVER LYMPHANGITIC SPREAD OF MALIGNANCY REMAINS IN THE DIFFERENTIAL. MILD SOFT TISSUE FULLNESS INVOLVING THE LEFT HILUM WITHOUT DISCRETE MASS OR ADENOPATHY. THIS IS NONSPECIFIC ING COULD BE INFECTIOUS, INFLAMMATORY, OR NEOPLASTIC. CORRELATE WITH HISTORY OF PRIMARY LUNG MALIGNANCY/BRONCHOSCOPY. NO CT EVIDENCE OF METASTATIC DISEASE WITHIN THE ABDOMEN OR PELVIS. ADDITIONAL CHRONIC CHANGES ABOVE. Head CT 12/24/16 00:00 IMPRESSION: No acute or suspicious findings. Chest X-Ray 12/24/16 17:00 IMPRESSION: STABLE APPEARANCE OF THE CHEST. NO CHANGE IN THE TINY LEFT APICAL PNEUMOTHORAX. Assessment & Plan - Diagnosis (1) Malignant pleural effusion Is this a current diagnosis for this admission?: YesPlan: There is a small amount of left hilar fullness, but no other distinct disease anywhere else, spoke with pathology yesterday, there are doing immunohistochemistry today, may have some results by this afternoon or tomorrow. She will follow-up with us in 1 week, from an oncologic standpoint she can be discharged home today. - Time Time Spent with patient: 35 or more minutes Critical Time spent with patient: 35 or more minutes Anticipated discharge: Home
[2016-12-25] MEDS: ASPIRIN/DIPYRIDAMOLE 25-200 MG 1 CAP.SR CPMP.12HR PO SCH (09:36)
--- NOTE | 2016-12-25 15:19 | PDOC DISCHARGE SUMMARY ---
General - Admit/Disc Date/PCP Admission Date/Primary Care Provider: 12/19/16 18:42 KRISTIE SARKAR MD Discharge Date: 12/25/16 - Discharge Diagnosis (1) Malignant pleural effusion Is this a current diagnosis for this admission?: Yes (2) Pneumothorax Is this a current diagnosis for this admission?: Yes (3) Atherosclerotic vascular disease Is this a current diagnosis for this admission?: Yes (4) Emphysema of lung Is this a current diagnosis for this admission?: Yes (5) Hypercholesterolemia Is this a current diagnosis for this admission?: Yes (6) CVA (cerebral vascular accident) Is this a current diagnosis for this admission?: No - Additional Information Resuscitation Status: Full Code Discharge Diet: Cardiac - low-fat low-salt Discharge Activity: Activity As Tolerated, Balance Activity w/Rest Home Medications: Aspirin/Dipyridamole [Aggrenox 25 mg-200 mg Capsule] 1 cap PO Q12 12/19/16 Atorvastatin Calcium [Lipitor 40 mg Tablet] 40 mg PO QHS 12/19/16 Hydrochlorothiazide 12.5 mg PO DAILY 12/19/16 Additional Information: 1. Follow up final report of fungal culture of the pleural fluid as outpatient with primary care physician of Dr. Sarkar 2. Bone scan as outpatient with Dr. Mayers. History of Present Illness Patient complains of: Shortness of breath History of Present Illness: PAKO BLACKMAN is a 76 year old female, with prior stroke came to the emergency room because of shortness of breath. The patient had pleural effusion in the past and 1 L of fluid was taken off and cytology was negative at that time. The patient had progressive shortness of breath since then and eventually presented back to the emergency room where a chest x-ray showed opacification of the left lung field. For details please refer to history and physical examination performed by the admitting physician. Hospital Course Hospital Course: The patient was admitted to [facility]. The patient was referred to interventional radiology and a chest tube was placed radiographically. Pleural fluid cultures were negative. Cytology was sent and findings at this time suggestive of malignancy. At this point Dr. Mayers was consulted and eventually performed CT of the abdomen and pelvis that was negative and his chest CT scan showing effusion and likewise fullness in the left hilum with interstitial thickening noted. The patient was then scheduled for a bone scan however the patient refused any further workup and wants to continue it on an outpatient basis. Her chest tube was removed the day before discharge and a follow-up chest x-ray shows a small pneumothorax. The patient has improved in terms of shortness of breath. She wanted to go home and continue the process on an outpatient basis. She will see oncology service in a week time. Physical Exam Vital Signs: Temp Pulse Resp BP Pulse Ox 98.5 F 76 18 119/67 97 12/25/16 11:42 12/25/16 11:42 12/25/16 11:42 12/25/16 11:42 12/25/16 11:42 Intake & Output 12/24/16 12/25/16 12/26/16 06:59 06:59 06:59 Intake Total 1506 1729 592 Output Total 1 Balance 1506 1728 592 Weight 103.6 kg 102.9 kg General appearance: PRESENT: no acute distress, cooperative Head exam: PRESENT: normocephalic Eye exam: PRESENT: EOMI, PERRLA Mouth exam: PRESENT: moist, neck supple Neck exam: ABSENT: JVD Respiratory exam: PRESENT: decreased breath sounds - Lower lung field. ABSENT: rhonchi, wheezes Cardiovascular exam: PRESENT: RRR. ABSENT: gallop GI/Abdominal exam: PRESENT: normal bowel sounds, soft. ABSENT: distended, tenderness Extremities exam: PRESENT: other - Trace pretibial edema Neurological exam: PRESENT: alert, awake, oriented to situation Psychiatric exam: ABSENT: agitated Focused psych exam: ABSENT: restlessness Skin exam: PRESENT: dry, warm. ABSENT: cyanosis Results Laboratory Results: 12/22/16 04:44 12/22/16 04:44 12/19/16 19:55 NT-Pro-B Natriuret Pep 59 Impressions: Thoracentesis 12/20/16 07:26 IMPRESSION: SUCCESSFUL CT GUIDED LEFT PIGTAIL CATHETER PLACEMENT. Abdomen/Pelvis CT 12/24/16 00:00 IMPRESSION: SMALL TO MODERATE RESIDUAL LEFT HYDROPNEUMOTHORAX STATUS POST REMOVAL OF CHEST TUBE. THERE IS NEW INTERSTITIAL THICKENING INVOLVING THE LEFT LUNG WITH MINIMAL LEFT LOWER LOBE AIRSPACE DISEASE SUBSEGMENTAL ATELECTASIS. PRESUMABLY THIS REPRESENTS RE-EXPANSION PULMONARY EDEMA HOWEVER LYMPHANGITIC SPREAD OF MALIGNANCY REMAINS IN THE DIFFERENTIAL. MILD SOFT TISSUE FULLNESS INVOLVING THE LEFT HILUM WITHOUT DISCRETE MASS OR ADENOPATHY. THIS IS NONSPECIFIC ING COULD BE INFECTIOUS, INFLAMMATORY, OR NEOPLASTIC. CORRELATE WITH HISTORY OF PRIMARY LUNG MALIGNANCY/BRONCHOSCOPY. NO CT EVIDENCE OF METASTATIC DISEASE WITHIN THE ABDOMEN OR PELVIS. ADDITIONAL CHRONIC CHANGES ABOVE. Chest CT 12/24/16 00:00 IMPRESSION: SMALL TO MODERATE RESIDUAL LEFT HYDROPNEUMOTHORAX STATUS POST REMOVAL OF CHEST TUBE. THERE IS NEW INTERSTITIAL THICKENING INVOLVING THE LEFT LUNG WITH MINIMAL LEFT LOWER LOBE AIRSPACE DISEASE SUBSEGMENTAL ATELECTASIS. PRESUMABLY THIS REPRESENTS RE-EXPANSION PULMONARY EDEMA HOWEVER LYMPHANGITIC SPREAD OF MALIGNANCY REMAINS IN THE DIFFERENTIAL. MILD SOFT TISSUE FULLNESS INVOLVING THE LEFT HILUM WITHOUT DISCRETE MASS OR ADENOPATHY. THIS IS NONSPECIFIC ING COULD BE INFECTIOUS, INFLAMMATORY, OR NEOPLASTIC. CORRELATE WITH HISTORY OF PRIMARY LUNG MALIGNANCY/BRONCHOSCOPY. NO CT EVIDENCE OF METASTATIC DISEASE WITHIN THE ABDOMEN OR PELVIS. ADDITIONAL CHRONIC CHANGES ABOVE. Head CT 12/24/16 00:00 IMPRESSION: No acute or suspicious findings. Chest X-Ray 12/24/16 17:00 IMPRESSION: STABLE APPEARANCE OF THE CHEST. NO CHANGE IN THE TINY LEFT APICAL PNEUMOTHORAX. Qualifiers PATEINT BEING DISCHARGED WITH ANY OF THE FOLLOWING DIAGNOSIS?: No Plan Discharge Plan: Follow-up with primary care physician in 1-2 weeks. Follow-up with Dr. Mayers in one week. Follow-up with Dr. Sarkar in one week. Time Spent: Less than 30 Minutes
[2016-12-25 16:35] VITALS: BP 138/78
== END 2016-12-25 17:12 | disposition home or self-care (01) | DRG 200 ==
LOC: 3W 18:39 → UNDOADMIN 18:39 → 3W 18:42
PROVIDERS: ADMIT Internal Medicine; ATTEND Internal Medicine
PROC: 0W9B30Z Drainage of Left Pleural Cavity with Drainage Device, Percutaneous Approach (ICD-10-PCS; principal; 2016-12-20)
DX: J93.9 Pneumothorax, unspecified (principal); J91.0 Malignant pleural effusion; C80.1 Malignant (primary) neoplasm, unspecified; I10 Essential (primary) hypertension; I73.9 Peripheral vascular disease, unspecified; J43.9 Emphysema, unspecified; E66.9 Obesity, unspecified; E78.00 Pure hypercholesterolemia, unspecified; Z87.891 Personal history of nicotine dependence; Z82.49 Family history of ischemic heart disease and other diseases of the circulatory system; Z79.82 Long term (current) use of aspirin; Z68.31 Body mass index [BMI] 31.0-31.9, adult; Z86.73 Personal history of transient ischemic attack (TIA), and cerebral infarction without residual deficits
CPT/HCPCS: 32551; 36415; 36600; 70460; 71010; 71020; 71260; 74177; 80048; 80053; 82803; 83615; 83735; 83880; 84157; 84439; 84443; 84484; 85025; 85610; 85730; 87015; 87070; 87075; 87101; 87116; 87205; 87206; 88305; 88341; 88342; 89050; 93005; 93010; C1729; C1769; C1894; J2250; J3010

== ENCOUNTER → 2016-12-19 | Outpatient (CLI) | payer MEDICARE, BC, OTHER ==
[2016-12-19 16:30] LABS: ABSOLUTE EOSINOPHILS # (AUTO) 0.1 10^3/uL (0.0-0.6); ABSOLUTE LYMPHOCYTES (AUTO) 0.8 10^3/uL (0.5-4.7); ABSOLUTE MONOCYTES (AUTO) 0.8 10^3/uL (0.1-1.4); ABSOLUTE NEUT (AUTO) 5.4 10^3/uL (1.7-8.2); BASOPHILS % (AUTO) 0.2 % (0-2); EOSINOPHILS % (AUTO) 1.2 % (0-6); HEMATOCRIT 37.9 % (36.0-47.0); HEMOGLOBIN 12.4 g/dL (12.0-15.5); HGB HCT DIFFERENCE -0.7; LYMPHOCYTES % (AUTO) 11.3 % (13-45); MEAN CORPUSCULAR HEMOGLOBIN 29.4 pg (27.0-33.4); MEAN CORPUSCULAR HGB CONC 32.6 g/dL (32.0-36.0); MEAN CORPUSCULAR VOLUME 90 fl (80-97); MONOCYTES % (AUTO) 10.7 % (3-13); RED BLOOD COUNT 4.21 10^6/uL (3.72-5.28); RED CELL DISTRIBUTION WIDTH 13.6 % (11.5-14.0); SEGMENTED NEUTROPHILS % (AUTO) 76.6 % (42-78); WHITE BLOOD COUNT 7.1 10^3/uL (4.0-10.5)
[2016-12-19 16:31] LABS: ARTERIAL BLOOD BASE EXCESS 0.6 mmol/L; ARTERIAL BLOOD O2 SATURATION 96.2 % (94-98)
[2016-12-19 16:53] LABS: ALANINE AMINOTRANSFERASE 54 U/L (9-52); ALKALINE PHOSPHATASE 90 U/L (38-126); ANION GAP 13 (5-19); ASPARTATE AMINO TRANSFERASE 37 U/L (14-36); BILIRUBIN,TOTAL 0.8 mg/dL (0.2-1.3); BLOOD UREA NITROGEN 20 mg/dL (7-20); CALCIUM 9.6 mg/dL (8.4-10.2); CARBON DIOXIDE 28 mmol/L (22-30); CHLORIDE 102 mmol/L (98-107); CREATININE RESULT 0.77 mg/dL (0.52-1.25); GLUCOSE 111 mg/dL (75-110); POTASSIUM 3.9 mmol/L (3.6-5.0); SODIUM 142.6 mmol/L (137-145); TOTAL PROTEIN 7.2 g/dL (6.3-8.2)
== END ==
LOC: OD 15:34
PROVIDERS: ATTEND Internal Medicine Pulmonary Disease
DX: I50.9 Heart failure, unspecified (principal); J44.9 Chronic obstructive pulmonary disease, unspecified; J96.11 Chronic respiratory failure with hypoxia; Z86.73 Personal history of transient ischemic attack (TIA), and cerebral infarction without residual deficits
CPT/HCPCS: 36415; 36600; 71020; 80053; 82803; 84484; 85025

== ENCOUNTER 2017-02-15 14:01 | Inpatient (IN) | payer MEDICARE, BC, OTHER ==
--- NOTE | 2017-02-15 14:14 | ER Document Report ---
ED Medical Screen (RME) - General Chief Complaint: Breathing Difficulty Stated Complaint: DIFFICUTY BREATHING Notes: Patient complains of increased difficulty breathing for the last week and a half. States she has a history of a pleural effusion. Complains of abdominal swelling. Thinks she had a fever. Patient states she has noticed increased swelling to her ankles. I have greeted and performed a rapid initial assessment of this patient. A comprehensive ED assessment and evaluation of the patient, analysis of test results and completion of the medical decision making process will be conducted by additional ED providers. TRAVEL OUTSIDE OF THE [place] IN LAST 30 DAYS: No - Related Data Allergies/Adverse Reactions: No Known Allergies Allergy (Unverified 10/16/16 14:03) Past Medical History - Past Medical History Cardiac Medical History: Reports: Hx Hypertension - Reported present but the patient denies. She is to be on diuretics., Hx Peripheral Vascular Disease Denies: Hx Congestive Heart Failure Pulmonary Medical History: Reports: Hx COPD Psychiatric Medical History: Denies: Hx Depression Past Surgical History: Reports: Hx Orthopedic Surgery - toes 1980, Other - Thoracentesis, chest tube - Immunizations Hx Diphtheria, Pertussis, Tetanus Vaccination: Yes Physical Exam - Vital signs Vitals: Temp Pulse Resp BP Pulse Ox 98.2 F 88 24 H 127/64 H 95 02/15/17 14:12 02/15/17 14:12 02/15/17 14:12 02/15/17 14:12 02/15/17 14:12 - Respiratory Breath sounds: Decreased air movement Course - Vital Signs Vital signs: Temp Pulse Resp BP Pulse Ox 98.2 F 88 24 H 127/64 H 95 02/15/17 14:12 02/15/17 14:12 02/15/17 14:12 02/15/17 14:12 02/15/17 14:12
[2017-02-15 15:23] LABS: ABSOLUTE EOSINOPHILS # (AUTO) 0.1 10^3/uL (0.0-0.6); ABSOLUTE LYMPHOCYTES (AUTO) 0.6 10^3/uL (0.5-4.7); ABSOLUTE NEUT (AUTO) 7.5 10^3/uL (1.7-8.2); BASOPHILS % (AUTO) 0.3 % (0-2); HEMATOCRIT 39.6 % (36.0-47.0); HEMOGLOBIN 12.9 g/dL (12.0-15.5); HGB HCT DIFFERENCE -0.9; MEAN CORPUSCULAR HEMOGLOBIN 28.9 pg (27.0-33.4); MEAN CORPUSCULAR HGB CONC 32.6 g/dL (32.0-36.0); MEAN CORPUSCULAR VOLUME 89 fl (80-97); MONOCYTES % (AUTO) 10.7 % (3-13); RED BLOOD COUNT 4.46 10^6/uL (3.72-5.28); RED CELL DISTRIBUTION WIDTH 13.3 % (11.5-14.0); WHITE BLOOD COUNT 9.2 10^3/uL (4.0-10.5)
--- NOTE | 2017-02-15 15:30 | ER Document Report ---
ED General - General Chief Complaint: Breathing Difficulty Stated Complaint: DIFFICUTY BREATHING Mode of Arrival: Ambulatory Information source: Patient Notes: 76 yr old female presents with complaints of sob. Pt noted to have been seen here 3 weeks ago, had a pleural effusion at that time. pt had 1 liter rmeoved. notes symptoms worsening over the past week. pt unable to lay flat TRAVEL OUTSIDE OF THE [place] IN LAST 30 DAYS: No - HPI Onset: Last week Onset/Duration: Persistent, Worse Quality of pain: No pain Severity: Moderate Pain Level: Denies Associated symptoms: Productive cough, Shortness of breath Exacerbated by: Supine Relieved by: Denies Similar symptoms previously: Yes Recently seen / treated by doctor: Yes - Related Data Allergies/Adverse Reactions: No Known Allergies Allergy (Unverified 10/16/16 14:03) Past Medical History - Social History Smoking Status: Former Smoker Cigarette use (# per day): No Chew tobacco use (# tins/day): No Smoking Education Provided: No Frequency of alcohol use: None Drug Abuse: None Family History: Hypertension Patient has suicidal ideation: No Patient has homicidal ideation: No - Past Medical History Cardiac Medical History: Reports: Hx Hypertension - Reported present but the patient denies. She is to be on diuretics., Hx Peripheral Vascular Disease Denies: Hx Congestive Heart Failure Pulmonary Medical History: Reports: Hx COPD Renal/ Medical History: Denies: Hx Peritoneal Dialysis Psychiatric Medical History: Denies: Hx Depression Past Surgical History: Reports: Hx Orthopedic Surgery - toes 1979, Other - Thoracentesis, chest tube - Immunizations Hx Diphtheria, Pertussis, Tetanus Vaccination: Yes Physical Exam - Vital signs Vitals: Temp Pulse Resp BP Pulse Ox 98.2 F 88 24 H 127/64 H 95 02/15/17 14:12 02/15/17 14:12 02/15/17 14:12 02/15/17 14:12 02/15/17 14:12 Course - Re-evaluation Re-evalutation: 02/15/17 15:[address] Mayers, he requests thoracentesis with cytology - Vital Signs Vital signs: Temp Pulse Resp BP Pulse Ox 98.2 F 88 24 H 127/64 H 95 02/15/17 14:12 02/15/17 14:12 02/15/17 14:12 02/15/17 14:12 02/15/17 14:12 - Laboratory Result Diagrams: 02/15/17 14:55 02/15/17 14:55 Laboratory results interpreted by me: 02/15/17 02/15/17 14:55 14:55 Seg Neutrophils % 81.0 H Lymphocytes % 7.0 L BUN 29 H Est GFR ( Amer) 51 L Est GFR (Non-Af Amer) 42 L AST 43 H Discharge - Discharge Additional Instructions: Follow up with your physician tomorrow for further care or return to the ED IMMEDIATELY if symptoms worsen or new concerns occur
[2017-02-15 15:43] LABS: ALANINE AMINOTRANSFERASE 39 U/L (9-52); ALBUMIN 3.7 g/dL (3.5-5.0); ALKALINE PHOSPHATASE 82 U/L (38-126); ANION GAP 15 (5-19); ASPARTATE AMINO TRANSFERASE 43 U/L (14-36); BILIRUBIN,DIRECT 0.4 mg/dL (0.0-0.4); BILIRUBIN,TOTAL 0.9 mg/dL (0.2-1.3); BLOOD UREA NITROGEN 29 mg/dL (7-20); CALCIUM 9.9 mg/dL (8.4-10.2); CARBON DIOXIDE 27 mmol/L (22-30); CHLORIDE 101 mmol/L (98-107); CREATINE KINASE 102 U/L (30-135); CREATININE RESULT 1.25 mg/dL (0.52-1.25); GLUCOSE 103 mg/dL (75-110); MAGNESIUM 2.2 mg/dL (1.6-2.3); POTASSIUM 4.3 mmol/L (3.6-5.0); SODIUM 142.5 mmol/L (137-145); TOTAL PROTEIN 7.4 g/dL (6.3-8.2)
[2017-02-15 16:08] LABS: PROTHROMBIN TIME 14.1 SEC (11.4-15.4)
[2017-02-15 18:16] LABS: FLUID TYPE PLEURAL
[2017-02-15 18:17] LABS: FLUID APPEARANCE CLOUDY; FLUID RBC AVERAGE 178.5; FLUID RBC SIDE 1 170; FLUID RBC SIDE 2 187
[2017-02-15 18:18] LABS: FLUID RBC DILUENT USED NONE USED; FLUID RBC DILUTION FACTOR 1; TOTAL RBC SQUARES COUNTED FLD 5
[2017-02-15] MEDS ORDERED: TEMAZEPAM 7.5 MG CAPSULE PO PRN (19:23)
[2017-02-15] MEDS ORDERED: IPRATROPIUM/ALBUTEROL 0.5-2.5 MG/3 ML AMPUL NEB PRN (19:23)
[2017-02-15] MEDS ORDERED: ACETAMINOPHEN 325 MG TABLET PO PRN (19:23)
[2017-02-15] MEDS ORDERED: OXYCODONE-ACETAMINOPHEN 5-325 MG TABLET PO PRN (19:23)
[2017-02-15] MEDS ORDERED: MAGNESIUM HYDROXIDE SUSP 30 ML UDCUP PO PRN (19:23)
[2017-02-15] MEDS ORDERED: ONDANSETRON HCL INJ/PF 4 MG/2 ML SDV IV PRN (19:23)
[2017-02-15] MEDS ORDERED: LORAZEPAM 0.5 MG TABLET PO PRN (19:28)
--- NOTE | 2017-02-15 19:36 | PDOC H&P ---
History of Present Illness Admission Date/PCP: 02/15/17 19:15 History of Present Illness: PAKO BLACKMAN is a 76 year old female with a recent diagnosis of adenocarcinoma who presents emergency department with shortness of breath. Patient isn't allergic to recur malignant pleural effusion and was sent to interventional radiology where a small pigtail catheter was placed. This was placed to suction as there is a small amount of air present. The hospitalist service is asked to observe this patient for resolution of pneumothorax and discussion of her adenocarcinoma. Past Medical History Cardiac Medical History: Reports: Hypertension - Reported present but the patient denies. She is to be on diuretics., Peripheral Vascular Disease Denies: Congestive Heart Failure Pulmonary Medical History: Reports: Chronic Obstructive Pulmonary Disease (COPD) Psychiatric Medical History: Denies: Depression Past Surgical History Past Surgical History: Reports: Orthopedic Surgery - toes 1979, Other - Thoracentesis, chest tube Social History Smoking Status: Former Smoker Frequency of Alcohol Use: None Hx Recreational Drug Use: No Drugs: None Hx Prescription Drug Abuse: No - Advance Directive Resuscitation Status: Full Code Surrogate healthcare decision maker:: Galilea Phipps Family History Family History: Hypertension Parental Family History Reviewed: Yes Children Family History Reviewed: Yes Sibling(s) Family History Reviewed.: Yes Medication/Allergy Allergies/Adverse Reactions: No Known Allergies Allergy (Unverified 10/16/16 14:03) Review of Systems Constitutional: ABSENT: chills, fever(s), headache(s), weight gain, weight loss Eyes: ABSENT: visual disturbances Ears: ABSENT: hearing changes Cardiovascular: ABSENT: chest pain, dyspnea on exertion, edema, orthropnea, palpitations Respiratory: PRESENT: dyspnea. ABSENT: cough, hemoptysis, sputum Gastrointestinal: ABSENT: abdominal pain, constipation, diarrhea, hematemesis, hematochezia, nausea, vomiting Genitourinary: ABSENT: dysuria, hematuria Musculoskeletal: ABSENT: joint swelling Integumentary: ABSENT: rash, wounds Neurological: ABSENT: abnormal gait, abnormal speech, confusion, dizziness, focal weakness, syncope Psychiatric: ABSENT: anxiety, depression, homidical ideation, suicidal ideation Endocrine: ABSENT: cold intolerance, heat intolerance, polydipsia, polyuria Hematologic/Lymphatic: ABSENT: easy bleeding, easy bruising Physical Exam Vital Signs: Temp Pulse Resp BP Pulse Ox 98.5 F 91 24 H 144/81 H 100 02/15/17 18:55 02/15/17 18:55 02/15/17 14:12 02/15/17 18:55 02/15/17 18:55 General appearance: PRESENT: mild distress, obese, well-developed, well- nourished Head exam: PRESENT: atraumatic, normocephalic Eye exam: PRESENT: conjunctiva pink, EOMI, PERRLA. ABSENT: scleral icterus Ear exam: PRESENT: normal external ear exam Mouth exam: PRESENT: moist, tongue midline Neck exam: ABSENT: JVD, lymphadenopathy, thyromegaly, tracheal deviation Respiratory exam: PRESENT: accessory muscle use, crackles, decreased breath sounds, tachypnea. ABSENT: rales, retraction, rhonchi, stridor, unlabored - Mildly labored, wheezes Cardiovascular exam: PRESENT: RRR, +S1, +S2. ABSENT: diastolic murmur, gallop, rubs, systolic murmur Pulses: PRESENT: normal dorsalis pedis pul Vascular exam: PRESENT: normal capillary refill GI/Abdominal exam: PRESENT: normal bowel sounds, soft. ABSENT: distended, firm , guarding, mass, Caputo's sign, organolmegaly, rebound, rigid, tenderness Rectal exam: PRESENT: deferred Extremities exam: PRESENT: full ROM, +1 edema. ABSENT: calf tenderness, clubbing, pedal edema Neurological exam: PRESENT: alert, awake, oriented to person, oriented to place , oriented to time, oriented to situation, CN II-XII grossly intact. ABSENT: motor sensory deficit Psychiatric exam: PRESENT: appropriate affect, normal mood. ABSENT: homicidal ideation, suicidal ideation Skin exam: PRESENT: dry, intact, warm. ABSENT: cyanosis, rash Results Impressions: Chest X-Ray 02/15/17 14:11 IMPRESSION: COPD. INCREASING LEFT PLEURAL EFFUSION. Thoracentesis Ultrasound 02/15/17 15:31 IMPRESSION: SUCCESSFUL THORACENTESIS USING ULTRASOUND GUIDANCE. AN 8 [place] APD PIGTAIL CATHETER WAS LEFT IN PLACE. Assessment & Plan - Diagnosis (1) Malignant pleural effusion Is this a current diagnosis for this admission?: YesPlan: Patient has had thoracocentesis with removal of 650 mL of fluid from her lung. Patient has a known malignant effusion. Currently with small pigtail Pleurx to waterseal. Will place this to suction. Oxygen as needed and incentive spirometry. Pain management. We'll consult Dr. Jesus Finn oncology for his input into this case. Patient is eager to discuss her diagnosis and plan of action. (2) Pneumothorax after biopsy Is this a current diagnosis for this admission?: Yes (3) Atherosclerotic vascular disease Is this a current diagnosis for this admission?: Yes (4) Emphysema of lung Qualifiers: Emphysema type: unspecified Is this a current diagnosis for this admission?: Yes (5) Hypercholesterolemia Is this a current diagnosis for this admission?: Yes (6) Obesity Qualifiers: Obesity type: due to excess calories Obesity severity: non-morbid Qualified Code(s): E66.09 - Other obesity due to excess calories Is this a current diagnosis for this admission?: Yes - Time Time Spent: Greater than 70 Minutes Medications reviewed and adjusted accordingly: Yes Anticipated discharge: Home Within: within 48 hours - Inpatient Certification Based on my medical assessment, after consideration of the patient's comorbidities, presenting symptoms, or acuity I expect that the services needed warrant INPATIENT care.: No I certify that my determination is in accordance with my understanding of Medicare's requirements for reasonable and necessary INPATIENT services [42 CFR 412.3e].: No Post Hospital Care: D/C Contingents Supervisor Documentation
[2017-02-15 20:33] LABS: CREATINE KINASE MB 1.14 ng/mL (<4.55)
[2017-02-15 20:36] LABS: TROPONIN I < 0.012 ng/mL
--- NOTE | 2017-02-15 22:02 | EKG REPORT ---
SEVERITY:- ABNORMAL ECG - SINUS RHYTHM CONSIDER ANTEROSEPTAL INFARCT : Confirmed by: Ashkan White 15-Feb-2017 22:02:10
[2017-02-15 22:08] LABS: APPEARANCE,URINE TURBID; BILIRUBIN,URINE NEGATIVE (NEGATIVE); GLUCOSE, URINE NEGATIVE (NEGATIVE); KETONES,URINE NEGATIVE (NEGATIVE); LEUKOCYTE ESTERASE,URINE TRACE (NEGATIVE); NITRITE,URINE NEGATIVE (NEGATIVE); PROTEIN,URINE 30 mg/dL (NEGATIVE); URINE SPECIFIC GRAVITY 1.023; UROBILINOGEN,URINE NEGATIVE mg/dL (<2.0)
--- NOTE | 2017-02-16 13:17 | PDOC CONSULTATION ---
Consultation Consult Date: 02/16/17 Attending physician:: TONY COTE Consult reason:: Recurrent left pleural effusion, malignant, shortness of breath History of Present Illness Admission Date/PCP: 02/15/17 19:23 Patient complains of: Recurrent left pleural effusion, malignant, shortness of breath History of Present Illness: 76-year-old female with known history of COPD on chronic oxygen, who presented over the last 2 months twice with left pleural effusion. She originally presented in October had thoracentesis, at that time cytology was inconclusive. She presented again approximately 6-8 weeks later with a recurrent left pleural effusion, and at that time had thoracentesis with about 1 L out, and cytology initially showed atypical cells concerning for carcinoma, this was ultimately sent out to [facility], they rendered a diagnosis of adenocarcinoma, TTF-1 was negative, immunohistochemistry seem to point to a possible breast or GI origin. When I saw her today, I did a full breast exam and did not palpate any breast lesions in either breast or axilla. She has never had a mammography. Of note, in December CT of the chest abdomen pelvis with contrast was done, and no primary lesion was noted. There was some left hilar adenopathy, but it was fairly small at that time. Of note, after the last admission she was to follow-up in our office with me, but she never did. She does have a [id number] history of tobacco and quit in 2006. Past Medical History Cardiac Medical History: Reports: Hypertension - Reported present but the patient denies. She is to be on diuretics., Peripheral Vascular Disease Denies: Congestive Heart Failure Pulmonary Medical History: Reports: Chronic Obstructive Pulmonary Disease (COPD) Malignancy Medical History: Reports: Other - Adenocarcinoma of unknown primary at present Psychiatric Medical History: Denies: Depression Past Surgical History Past Surgical History: Reports: Orthopedic Surgery - toes 1979, Other - Thoracentesis, chest tube Social History Smoking Status: Former Smoker Cigarettes Packs Per Day: 1 Number of Years Smokin Frequency of Alcohol Use: None Hx Recreational Drug Use: No Drugs: None Hx Prescription Drug Abuse: No - Advance Directive Resuscitation Status: Full Code Family History Family History: Hypertension Parental Family History Reviewed: Yes Children Family History Reviewed: Yes Sibling(s) Family History Reviewed.: Yes Medication/Allergy Home Medications: Albuterol Sulfate [Proair HFA] 2 puff IH Q4HP PRN 02/16/17 Ipratropium/Albuterol Sulfate [Iprat-Albut 0.5-3(2.5) mg/3 ml] 3 ml IH Q6HP PRN 02/16/17 Umeclidinium Brm/Vilanterol Tr [Anoro Ellipta 62.5-25 Mcg INH] 1 puff IH DAILY 02/16/17 Allergies/Adverse Reactions: No Known Allergies Allergy (Unverified 10/16/16 14:03) Review of Systems Constitutional: PRESENT: fatigue, weakness Cardiovascular: PRESENT: dyspnea on exertion, orthropnea Gastrointestinal: ABSENT: abdominal pain, constipation, diarrhea, hematemesis, hematochezia, nausea, vomiting Musculoskeletal: ABSENT: joint swelling Neurological: ABSENT: abnormal gait, abnormal speech, confusion, dizziness, focal weakness, syncope Physical Exam Vital Signs: Temp Pulse Resp BP Pulse Ox 97.5 F 87 20 141/76 H 100 02/16/17 07:37 02/16/17 07:37 02/16/17 07:37 02/16/17 07:37 02/16/17 07:37 Intake & Output 02/15/17 02/16/17 02/17/17 06:59 06:59 06:59 Output Total 250 Balance -250 Weight 98.6 kg General appearance: PRESENT: no acute distress Head exam: PRESENT: atraumatic Mouth exam: PRESENT: dry mucosa Neck exam: ABSENT: carotid bruit, JVD, lymphadenopathy, thyromegaly Respiratory exam: PRESENT: crackles, tachypnea GI/Abdominal exam: PRESENT: normal bowel sounds, soft. ABSENT: distended, guarding, mass, organolmegaly, rebound, tenderness Neurological exam: PRESENT: alert, awake, oriented to person, oriented to place , oriented to time, oriented to situation, CN II-XII grossly intact. ABSENT: motor sensory deficit Additional comments: Breast exam done, no breast lesions palpable bilateral breast, no skin or nipple changes, bilateral axilla clear. Results Laboratory Results: 02/15/17 20:50 Urine Color LYNNE Urine Appearance TURBID Urine pH 5.0 Ur Specific [place] 1.023 Urine Protein 30 H Urine Glucose (UA) NEGATIVE Urine Ketones NEGATIVE Urine Blood NEGATIVE Urine Nitrite NEGATIVE Ur Leukocyte Esterase TRACE H Urine WBC (Auto) 5 Urine RBC (Auto) 2 02/15/17 20:00 CK-MB (CK-2) 1.14 Troponin I < 0.012 NT-Pro-B Natriuret Pep 95 Impressions: Thoracentesis Ultrasound 02/15/17 15:31 IMPRESSION: SUCCESSFUL THORACENTESIS USING ULTRASOUND GUIDANCE. AN 8 [place] APD PIGTAIL CATHETER WAS LEFT IN PLACE. Chest X-Ray 02/16/17 06:00 IMPRESSION: NO CHANGE IN APPEARANCE OF THE CHEST. STABLE LEFT SIDE PIGTAIL CATHETER WITH BASILAR HYDROPNEUMOTHORAX AND SMALL APICAL PNEUMOTHORAX. Status: Image reviewed by me Assessment & Plan - Diagnosis (1) Malignant pleural effusion Is this a current diagnosis for this admission?: YesPlan: Malignant pleural effusion, thus far adenocarcinoma of unknown primary, she has a chest tube placed now but this needs to be switched to a Pleurx catheter. I will consult Dr. Aden for this. Unfortunately, the general surgeon on-call can't do it, and the radiology department here can do it either. (2) Carcinoma of unknown primary Is this a current diagnosis for this admission?: YesPlan: Adenocarcinoma of unknown primary, by immunohistochemistry most likely breast or GI, the next step would be PET/CT as an outpatient. I will also ask pathology to add receptor studies to the cytology specimen if possible, we will also await cytology analysis from the most recent thoracentesis to see if more cells are available. - Time Time Spent: Greater than 70 Minutes Critical Time spent with patient: 35 or more minutes - Inpatient Certification Based on my medical assessment, after consideration of the patient's comorbidities, presenting symptoms, or acuity I expect that the services needed warrant INPATIENT care.: Yes I certify that my determination is in accordance with my understanding of Medicare's requirements for reasonable and necessary INPATIENT services [42 CFR 412.3e].: Yes Medical Necessity: Need for Surgery, Risk of Complication if Not Cared For in Hospital
--- NOTE | 2017-02-16 16:27 | PDOC PROGRESS REPORT ---
Subjective Progress Note for:: 02/16/17 Subjective:: Patient reports she is breathing much better than yesterday. She has discussed her case with Dr. Mayers. She has no new complaints.Patient denies chest pain , abdominal pain, nausea, vomiting, fevers, chills, diarrhea, constipation, headache, new onset weakness. Physical Exam Vital Signs: Temp Pulse Resp BP Pulse Ox 98.3 F 88 19 139/67 H 100 02/16/17 04:00 02/16/17 04:00 02/16/17 04:00 02/16/17 04:00 02/16/17 04:00 Intake & Output 02/15/17 02/16/17 02/17/17 06:59 06:59 06:59 Output Total 250 Balance -250 Weight 98.6 kg Exam: General: Awake alert and oriented x3, no acute respiratory distress HEENT: AT/NC, PERRL, EOMI, oropharynx is moist, pink, no scleral icterus, no conjunctival injection Neck: No JVD, trachea midline Chest: Diminished left lower lobe, Rales on left CV: Regular rate and rhythm, normal S1 and S2, no murmur, rub, or gallop Abdomen: Soft, nontender to palpation, nondistended, active bowel sounds; no rebound, rigidity, or guarding Extremities: No cyanosis, clubbing or edema Neuro: Cranial nerves II through XII are grossly intact without focal deficits; awake alert and oriented x3 Psych: Normal mood and affect Results Laboratory Results: 02/15/17 20:50 Urine Color LYNNE Urine Appearance TURBID Urine pH 5.0 Ur Specific [place] 1.023 Urine Protein 30 H Urine Glucose (UA) NEGATIVE Urine Ketones NEGATIVE Urine Blood NEGATIVE Urine Nitrite NEGATIVE Ur Leukocyte Esterase TRACE H Urine WBC (Auto) 5 Urine RBC (Auto) 2 02/15/17 20:00 CK-MB (CK-2) 1.14 Troponin I < 0.012 NT-Pro-B Natriuret Pep 95 Impressions: Thoracentesis Ultrasound 02/15/17 15:31 IMPRESSION: SUCCESSFUL THORACENTESIS USING ULTRASOUND GUIDANCE. AN 8 [place] APD PIGTAIL CATHETER WAS LEFT IN PLACE. Chest X-Ray 02/15/17 19:53 IMPRESSION: STABLE APPEARANCE OF THE CHEST WITH LEFT SIDED HYDROPNEUMOTHORAX, AIRSPACE DISEASE, AND CHEST TUBE IN PLACE. Assessment & Plan - Diagnosis (1) Malignant pleural effusion Is this a current diagnosis for this admission?: YesPlan: Patient has had thoracocentesis with removal of 650 mL of fluid from her lung. Patient has a known malignant effusion. Currently with small pigtail to suction. Oxygen as needed and incentive spirometry. Pain management. Plan for placement of Pleurx on Saturday. (2) Pneumothorax after biopsy Is this a current diagnosis for this admission?: YesPlan: Continue to monitor with serial chest x-ray. (3) Atherosclerotic vascular disease Is this a current diagnosis for this admission?: Yes (4) Emphysema of lung Qualifiers: Emphysema type: unspecified Qualified Code(s): J43.9 - Emphysema, unspecified Is this a current diagnosis for this admission?: Yes (5) Hypercholesterolemia Is this a current diagnosis for this admission?: Yes (6) Obesity Qualifiers: Obesity type: due to excess calories Obesity severity: non-morbid Qualified Code(s): E66.09 - Other obesity due to excess calories Is this a current diagnosis for this admission?: Yes - Time Time Spent with patient: 25-34 minutes Medications reviewed and adjusted accordingly: Yes
[2017-02-17] MEDS: MORPHINE SULFATE 10 MG/ML INJ IV PRN (09:00)
[2017-02-17] MEDS ORDERED: (PENDING PHARMACY ID) (Umeclidinium Brm/Vilanterol Tr [Anoro Ellipta 62.5-25 Mcg Inh] 1 PU IH SCH (10:00)
[2017-02-17] MEDS ORDERED: VANCOMYCIN HCL 0 MG in DEXTROSE 5%-WATER 250 ML IV NR (10:15)
[2017-02-17 10:42] LABS: ABSOLUTE EOSINOPHILS # (AUTO) 0.2 10^3/uL (0.0-0.6); ABSOLUTE LYMPHOCYTES (AUTO) 0.5 10^3/uL (0.5-4.7); ABSOLUTE MONOCYTES (AUTO) 1.1 10^3/uL (0.1-1.4); ABSOLUTE NEUT (AUTO) 6.8 10^3/uL (1.7-8.2); BASOPHILS % (AUTO) 0.5 % (0-2); EOSINOPHILS % (AUTO) 2.2 % (0-6); HEMATOCRIT 36.7 % (36.0-47.0); HEMOGLOBIN 12.2 g/dL (12.0-15.5); HGB HCT DIFFERENCE -0.1; LYMPHOCYTES % (AUTO) 6.1 % (13-45); MEAN CORPUSCULAR HEMOGLOBIN 29.5 pg (27.0-33.4); MEAN CORPUSCULAR HGB CONC 33.2 g/dL (32.0-36.0); MEAN CORPUSCULAR VOLUME 89 fl (80-97); MONOCYTES % (AUTO) 12.8 % (3-13); RED BLOOD COUNT 4.14 10^6/uL (3.72-5.28); RED CELL DISTRIBUTION WIDTH 13.1 % (11.5-14.0); SEGMENTED NEUTROPHILS % (AUTO) 78.4 % (42-78); WHITE BLOOD COUNT 8.7 10^3/uL (4.0-10.5)
--- NOTE | 2017-02-17 10:43 | PDOC PROGRESS REPORT ---
Subjective Progress Note for:: 02/17/17 Subjective:: Pt having some pain this am in chest, started on morphine, today had long discussion >45 min about current status of dx and next steps of care, discussed case w/ Dr. Aden yesterday at length, he will see her in am about Pleur-X placement Physical Exam Vital Signs: Temp Pulse Resp BP Pulse Ox 98.1 F 87 20 140/80 H 100 02/17/17 08:07 02/17/17 08:07 02/17/17 08:07 02/17/17 08:07 02/17/17 08:07 Intake & Output 02/16/17 02/17/17 02/18/17 06:59 06:59 06:59 Intake Total 724 120 Output Total 250 325 Balance -250 399 120 Weight 98.6 kg 98.6 kg General appearance: PRESENT: no acute distress, well-developed, well-nourished Head exam: PRESENT: atraumatic, normocephalic Eye exam: PRESENT: conjunctiva pink, EOMI, PERRLA. ABSENT: scleral icterus Ear exam: PRESENT: normal external ear exam Mouth exam: PRESENT: moist, tongue midline Neck exam: ABSENT: carotid bruit, JVD, lymphadenopathy, thyromegaly Respiratory exam: PRESENT: clear to auscultation chiki. ABSENT: rales, rhonchi, wheezes Cardiovascular exam: PRESENT: RRR. ABSENT: diastolic murmur, rubs, systolic murmur Pulses: PRESENT: normal dorsalis pedis pul Vascular exam: PRESENT: normal capillary refill GI/Abdominal exam: PRESENT: normal bowel sounds, soft. ABSENT: distended, guarding, mass, organolmegaly, rebound, tenderness Rectal exam: PRESENT: deferred Extremities exam: PRESENT: full ROM. ABSENT: calf tenderness, clubbing, pedal edema Neurological exam: PRESENT: alert, awake, oriented to person, oriented to place , oriented to time, oriented to situation, CN II-XII grossly intact. ABSENT: motor sensory deficit Psychiatric exam: PRESENT: appropriate affect, normal mood. ABSENT: homicidal ideation, suicidal ideation Skin exam: PRESENT: dry, intact, warm. ABSENT: cyanosis, rash Results Laboratory Results: 02/15/17 20:00 CK-MB (CK-2) 1.14 Troponin I < 0.012 NT-Pro-B Natriuret Pep 95 Impressions: Thoracentesis Ultrasound 02/15/17 15:31 IMPRESSION: SUCCESSFUL THORACENTESIS USING ULTRASOUND GUIDANCE. AN 8 [place] APD PIGTAIL CATHETER WAS LEFT IN PLACE. Chest X-Ray 02/17/17 00:00 IMPRESSION: Small-moderate left hydropneumothorax. Left chest tube. Moderate airspace opacity of the left mid lung field. Assessment & Plan - Diagnosis (1) Malignant pleural effusion Is this a current diagnosis for this admission?: YesPlan: Unknown primary, next step would be pleur-x cath placement, discussed case w/ Dr. Aden, planned for tomorrow hopefully, ordered NPO a midnight today. (2) Carcinoma of unknown primary Is this a current diagnosis for this admission?: YesPlan: Cytology pending on this specimen now, will need PET and further next gen sequencing as outpt for figure out primary source. - Time Time Spent with patient: 35 or more minutes Critical Time spent with patient: 35 or more minutes - Inpatient Certification Based on my medical assessment, after consideration of the patient's comorbidities, presenting symptoms, or acuity I expect that the services needed warrant INPATIENT care.: Yes I certify that my determination is in accordance with my understanding of Medicare's requirements for reasonable and necessary INPATIENT services [42 CFR 412.3e].: Yes Medical Necessity: Need for Pain Control, Need for Surgery, Risk of Complication if Not Cared For in Hospital
[2017-02-17 10:50] LABS: PROTHROMBIN TIME 14.2 SEC (11.4-15.4)
[2017-02-17 10:51] LABS: PARTIAL THROMBOPLASTIN TIME 36.5 SEC (23.5-35.8)
[2017-02-17 10:58] LABS: ALANINE AMINOTRANSFERASE 44 U/L (9-52); ALKALINE PHOSPHATASE 79 U/L (38-126); ANION GAP 13 (5-19); ASPARTATE AMINO TRANSFERASE 46 U/L (14-36); BILIRUBIN,DIRECT 0.4 mg/dL (0.0-0.4); BILIRUBIN,TOTAL 0.8 mg/dL (0.2-1.3); BLOOD UREA NITROGEN 27 mg/dL (7-20); CALCIUM 9.1 mg/dL (8.4-10.2); CARBON DIOXIDE 24 mmol/L (22-30); CHLORIDE 103 mmol/L (98-107); CREATININE RESULT 1.18 mg/dL (0.52-1.25); GLUCOSE 138 mg/dL (75-110); POTASSIUM 4.1 mmol/L (3.6-5.0); TOTAL PROTEIN 6.4 g/dL (6.3-8.2)
[2017-02-17] MEDS ORDERED: FUROSEMIDE INJ/PF 20 MG/2 ML SDV IV ONE (11:00)
[2017-02-17] MEDS: VANCOMYCIN HCL 1,500 MG in DEXTROSE 5%-WATER 250 ML IV SCH (13:21)
[2017-02-17] MEDS: PIPERACILLIN SODIUM/TAZOBACTAM 4.5 GM in NORMAL SALINE 100 ML IV SCH ×2 (13:22→19:15)
--- NOTE | 2017-02-17 13:57 | PDOC PROGRESS REPORT ---
Subjective Progress Note for:: 02/17/17 Subjective:: Patient is in distress when I see her. She has 5 word dyspnea. Patient is quite short of breath with some chest discomfort. Patient denies abdominal pain, nausea, vomiting, fevers, chills, diarrhea, constipation, headache, new onset weakness. Physical Exam Vital Signs: Temp Pulse Resp BP Pulse Ox 98.1 F 86 16 134/68 H 99 02/17/17 00:00 02/17/17 00:00 02/17/17 00:00 02/17/17 00:00 02/17/17 00:00 Intake & Output 02/16/17 02/17/17 02/18/17 06:59 06:59 06:59 Intake Total 724 Output Total 250 325 Balance -250 399 Weight 98.6 kg 98.6 kg Exam: General: Awake alert and oriented x3, moderate respiratory distress HEENT: AT/NC, PERRL, EOMI, oropharynx is moist, pink, no scleral icterus, no conjunctival injection Neck: No JVD, trachea midline Chest: , Diminished left lower lobe, left upper lobe clear, right lung clear CV: Tachycardic, Regular rate and rhythm, normal S1 and S2, no murmur, rub, or gallop Abdomen: Soft, nontender to palpation, nondistended, active bowel sounds; no rebound, rigidity, or guarding Extremities: No cyanosis, clubbing; 1+edema Neuro: Cranial nerves II through XII are grossly intact without focal deficits; awake alert and oriented x3 Psych: Normal mood and affect Results Laboratory Results: 02/15/17 20:00 CK-MB (CK-2) 1.14 Troponin I < 0.012 NT-Pro-B Natriuret Pep 95 Impressions: Thoracentesis Ultrasound 02/15/17 15:31 IMPRESSION: SUCCESSFUL THORACENTESIS USING ULTRASOUND GUIDANCE. AN 8 [place] APD PIGTAIL CATHETER WAS LEFT IN PLACE. Chest X-Ray 02/16/17 06:00 IMPRESSION: NO CHANGE IN APPEARANCE OF THE CHEST. STABLE LEFT SIDE PIGTAIL CATHETER WITH BASILAR HYDROPNEUMOTHORAX AND SMALL APICAL PNEUMOTHORAX. Assessment & Plan - Diagnosis (1) Malignant pleural effusion Is this a current diagnosis for this admission?: YesPlan: Patient has had thoracocentesis with removal of 650 mL of fluid from her lung. Patient has a known malignant effusion. Currently with small pigtail to suction. Oxygen as needed and incentive spirometry. Pain management. Have consulted surgery for possible placement of larger port chest tube. Have obtained repeat chest x-ray which reveals worsening effusion and left upper infiltrate Plan for placement of Pleurx on Saturday. (2) Pneumonia Qualifiers: Pneumonia type: due to unspecified organism Laterality: left Lung location: upper lobe of lung Qualified Code(s): J18.1 - Lobar pneumonia, unspecified organism Is this a current diagnosis for this admission?: YesPlan: Patient with left upper lobe pneumonia with associated pleural effusion. Will initiate patient on vancomycin, Zosyn and will send blood cultures, sputum culture, and continue scheduled nebulized treatments. Encourage incentive spirometry and flutter valve. That this may be actual lymphangitic spread of patient's cancer and not an actual infiltrate in light of her absence of white count and fever. (3) Pneumothorax after biopsy Is this a current diagnosis for this admission?: YesPlan: Continue to monitor with serial chest x-ray. Continue to have chest tube to suction (4) Carcinoma of unknown primary Is this a current diagnosis for this admission?: YesPlan: Have consulted oncology. Appreciate their input. (5) Atherosclerotic vascular disease Is this a current diagnosis for this admission?: Yes (6) Emphysema of lung Qualifiers: Emphysema type: unspecified Qualified Code(s): J43.9 - Emphysema, unspecified Is this a current diagnosis for this admission?: Yes (7) Hypercholesterolemia Is this a current diagnosis for this admission?: Yes (8) Obesity Qualifiers: Obesity type: due to excess calories Obesity severity: non-morbid Qualified Code(s): E66.09 - Other obesity due to excess calories Is this a current diagnosis for this admission?: Yes (9) History of CVA (cerebrovascular accident) without residual deficits Is this a current diagnosis for this admission?: Yes - Time Time Spent with patient: 25-34 minutes Medications reviewed and adjusted accordingly: Yes - Inpatient Certification Based on my medical assessment, after consideration of the patient's comorbidities, presenting symptoms, or acuity I expect that the services needed warrant INPATIENT care.: Yes Medical Necessity: Need for Nebulizer Therapy and Monitoring of Response, Need for IV Antibiotics Post Hospital Care: D/C Rehabilitation Services Manager Documentation
[2017-02-17] MEDS: IPRATROPIUM/ALBUTEROL 0.5-2.5 MG/3 ML AMPUL NEB SCH ×2 (14:34→20:56)
[2017-02-17] MEDS: GUAIFENESIN 600 MG TABLET.SA PO SCH (22:37)
[2017-02-18] MEDS ORDERED: PIPERACILLIN/TAZOBACTAM 4.5 GM VIAL IV ONE (00:17)
[2017-02-18] MEDS: PIPERACILLIN SODIUM/TAZOBACTAM 4.5 GM in NORMAL SALINE 100 ML IV SCH ×3 (00:48→16:02)
[2017-02-18] MEDS: IPRATROPIUM/ALBUTEROL 0.5-2.5 MG/3 ML AMPUL NEB SCH ×3 (07:58→20:13)
--- NOTE | 2017-02-18 08:34 | PDOC PROGRESS REPORT ---
Subjective Progress Note for:: 02/18/17 Subjective:: No acute events overnight, patient is currently nothing by mouth Physical Exam Vital Signs: Temp Pulse Resp BP Pulse Ox 98.1 F 84 16 134/74 H 97 02/18/17 02:00 02/18/17 08:02 02/18/17 08:02 02/18/17 02:00 02/18/17 08:02 Intake & Output 02/17/17 02/18/17 02/19/17 06:59 06:59 06:59 Output Total 200 Balance -200 General appearance: PRESENT: no acute distress, well-developed, well-nourished Head exam: PRESENT: atraumatic, normocephalic Eye exam: PRESENT: conjunctiva pink, EOMI, PERRLA. ABSENT: scleral icterus Ear exam: PRESENT: normal external ear exam Mouth exam: PRESENT: moist, tongue midline Neck exam: ABSENT: carotid bruit, JVD, lymphadenopathy, thyromegaly Respiratory exam: PRESENT: clear to auscultation chiki. ABSENT: rales, rhonchi, wheezes Cardiovascular exam: PRESENT: RRR. ABSENT: diastolic murmur, rubs, systolic murmur Pulses: PRESENT: normal dorsalis pedis pul Vascular exam: PRESENT: normal capillary refill GI/Abdominal exam: PRESENT: normal bowel sounds, soft. ABSENT: distended, guarding, mass, organolmegaly, rebound, tenderness Rectal exam: PRESENT: deferred Extremities exam: PRESENT: full ROM. ABSENT: calf tenderness, clubbing, pedal edema Neurological exam: PRESENT: alert, awake, oriented to person, oriented to place , oriented to time, oriented to situation, CN II-XII grossly intact. ABSENT: motor sensory deficit Psychiatric exam: PRESENT: appropriate affect, normal mood. ABSENT: homicidal ideation, suicidal ideation Skin exam: PRESENT: dry, intact, warm. ABSENT: cyanosis, rash Results Impressions: Thoracentesis Ultrasound 02/15/17 15:31 IMPRESSION: SUCCESSFUL THORACENTESIS USING ULTRASOUND GUIDANCE. AN 8 [place] APD PIGTAIL CATHETER WAS LEFT IN PLACE. Chest X-Ray 02/17/17 00:00 IMPRESSION: Small-moderate left hydropneumothorax. Left chest tube. Moderate airspace opacity of the left mid lung field. Assessment & Plan - Diagnosis (1) Malignant pleural effusion Is this a current diagnosis for this admission?: YesPlan: Probable placement of Pleurx catheter today, awaiting cytology results from most recent thoracentesis, I have asked pathology to continue with workup on her. (2) Carcinoma of unknown primary Is this a current diagnosis for this admission?: YesPlan: Further imaging planned as an outpatient, once Pleurx catheters placed in, and we can set up home health services for her, we will hopefully get her home and then further workup as an outpatient. - Time Time Spent with patient: 35 or more minutes Critical Time spent with patient: 35 or more minutes - Inpatient Certification Based on my medical assessment, after consideration of the patient's comorbidities, presenting symptoms, or acuity I expect that the services needed warrant INPATIENT care.: Yes I certify that my determination is in accordance with my understanding of Medicare's requirements for reasonable and necessary INPATIENT services [42 CFR 412.3e].: Yes Medical Necessity: Need for Surgery
[2017-02-18 10:09] LABS: ABSOLUTE EOSINOPHILS # (AUTO) 0.2 10^3/uL (0.0-0.6); ABSOLUTE LYMPHOCYTES (AUTO) 0.8 10^3/uL (0.5-4.7); ABSOLUTE NEUT (AUTO) 6.3 10^3/uL (1.7-8.2); BASOPHILS % (AUTO) 0.3 % (0-2); EOSINOPHILS % (AUTO) 2.2 % (0-6); HEMATOCRIT 36.3 % (36.0-47.0); HEMOGLOBIN 11.9 g/dL (12.0-15.5); HGB HCT DIFFERENCE -0.6; LYMPHOCYTES % (AUTO) 9.9 % (13-45); MEAN CORPUSCULAR HEMOGLOBIN 29.3 pg (27.0-33.4); MEAN CORPUSCULAR HGB CONC 32.7 g/dL (32.0-36.0); MEAN CORPUSCULAR VOLUME 90 fl (80-97); MONOCYTES % (AUTO) 12.1 % (3-13); RED BLOOD COUNT 4.06 10^6/uL (3.72-5.28); SEGMENTED NEUTROPHILS % (AUTO) 75.5 % (42-78); WHITE BLOOD COUNT 8.3 10^3/uL (4.0-10.5)
[2017-02-18 10:19] LABS: PROTHROMBIN TIME 14.3 SEC (11.4-15.4)
[2017-02-18] MEDS ORDERED: MIDAZOLAM 2 MG/2 ML INJ ONE (10:23)
[2017-02-18] MEDS ORDERED: MORPHINE SULFATE 10 MG/ML INJ ONE (10:23)
[2017-02-18 10:29] LABS: ANION GAP 14 (5-19); BLOOD UREA NITROGEN 27 mg/dL (7-20); CALCIUM 9.1 mg/dL (8.4-10.2); CARBON DIOXIDE 27 mmol/L (22-30); CHLORIDE 102 mmol/L (98-107); CREATININE RESULT 1.47 mg/dL (0.52-1.25); GLUCOSE 135 mg/dL (75-110); POTASSIUM 4.6 mmol/L (3.6-5.0); SODIUM 142.5 mmol/L (137-145)
[2017-02-18] MEDS ORDERED: LIDOCAINE 0.5% INJ-PF (5 MG/ML) 50 ML SDV ONE (11:35)
--- NOTE | 2017-02-18 13:22 | Operative Report ---
Operative Report DATE OF SURGERY: 02/18/17 PREOPERATIVE DIAGNOSIS: Malignant left pleural effusion POSTOPERATIVE DIAGNOSIS: Same OPERATION: 1. Placement of Pleurx catheter into left chest. 2. Interpretation of intraoperative fluoroscopy SURGEON: OMA RODRIGUES ANESTHESIA: GA TISSUE REMOVED OR ALTERED: None: Left pleural fluid COMPLICATIONS: None ESTIMATED BLOOD LOSS: scant INTRAOPERATIVE FINDINGS: See below PROCEDURE: The patient was taken from the floor to the cardiac catheterization lab where she was laid supine right side down left side up. The previous cutaneous pigtail catheter inserted into the left posterior chest was undressed, and the catheter clamped and then divided distally allowing the portion of the catheter to remain in the patient's chest. The left chest was then prepped and draped in sterile fashion. Surgical plan surgical time out conducted. I reviewed the patient's previous x-rays. She had a residual left pleural effusion, and a small 2.8 cm residual left apical pneumothorax. The pigtail catheter was in the left chest, approximately ICS 7. After studying this image , looking at the existing catheter, I felt that repositioning the catheter slightly more caudad and laterally would be more effective and comfortable for the patient. Therefore suitable slide a proximally ICS 9 was chosen as one percent lidocaine without epinephrine. A 15 blade used to make a small christian in the skin and the 18-gauge Jelco was threaded into the left pleural space. The wire was threaded through the Jelco and left in position. A suitable site for exit of the catheter was chosen in the more left lateral chest wall. Skin was anesthetized 1% lidocaine with epinephrine, as well as the skin between the 2 planned incisions. A small incision was made in the lateral chest, and the Pleurx catheter was tunneled between the 2 wounds, with the cuff sufficiently seated in the subcutaneous space Under fluoroscopic guidance, the tract was then dilated over wire with the small then medium dilators and finally with strip away sheath. Dilator and wire were removed, catheter inserted into the left pleural space and the strip away sheath removed. The Catheter was checked fluoroscopically for kinking and there was none. The catheter Was hooked to the proprietary receptacle, approximately 200 mL of blood pleural fluid was immediately evacuated. We removed the old pigtail catheter and closed the incision with 2-0 Vicryl suture. Pleurx wound site closed with 3-0 Vicryl suture and the catheter secured to the skin with #1 silk suture, Biopatch and appropriate sterile dressings applied. Portable upright chest x-ray pending at time of dictation technology applications consultant Colleen Corrales
[2017-02-18] MEDS: GUAIFENESIN 600 MG TABLET.SA PO SCH ×2 (16:03→21:24)
[2017-02-18] MEDS: VANCOMYCIN HCL 1,500 MG in DEXTROSE 5%-WATER 250 ML IV SCH (16:03)
--- NOTE | 2017-02-18 16:32 | PDOC PROGRESS REPORT ---
Subjective Progress Note for:: 02/18/17 Subjective:: Patient seen after replacement of chest tube. She reports her shortness of breath is greatly improved. Patient denies chest pain, shortness of breath, abdominal pain, nausea, vomiting , fevers, chills, diarrhea, constipation, headache, new onset weakness. Physical Exam Vital Signs: Temp Pulse Resp BP Pulse Ox 98.1 F 87 16 134/74 H 100 02/18/17 02:00 02/18/17 02:00 02/18/17 02:00 02/18/17 02:00 02/17/17 23:56 Intake & Output 02/17/17 02/18/17 02/19/17 06:59 06:59 06:59 Output Total 200 Balance -200 Exam: General: Awake alert and oriented x3, no acute respiratory distress HEENT: AT/NC, PERRL, EOMI, oropharynx is moist, pink, no scleral icterus, no conjunctival injection Neck: No JVD, trachea midline Chest: Occasional crackles left lower lobe, otherwise clear CV: Tachycardic, Regular rate and rhythm, normal S1 and S2, no murmur, rub, or gallop Abdomen: Soft, nontender to palpation, nondistended, active bowel sounds; no rebound, rigidity, or guarding Extremities: No cyanosis, clubbing; 1+edema Neuro: Cranial nerves II through XII are grossly intact without focal deficits; awake alert and oriented x3 Psych: Normal mood and affect Results Impressions: Thoracentesis Ultrasound 02/15/17 15:31 IMPRESSION: SUCCESSFUL THORACENTESIS USING ULTRASOUND GUIDANCE. AN 8 [place] APD PIGTAIL CATHETER WAS LEFT IN PLACE. Chest X-Ray 02/17/17 00:00 IMPRESSION: Small-moderate left hydropneumothorax. Left chest tube. Moderate airspace opacity of the left mid lung field. Assessment & Plan - Diagnosis (1) Malignant pleural effusion Is this a current diagnosis for this admission?: YesPlan: Patient has had placement of Pleurx catheter with nearly 1 L removed by surgeon. Patient has a known malignant effusion. Oxygen as needed and incentive spirometry. Pain management. Will repeat chest x-ray in the a.m. and if stable will likely be stable for discharge home. (2) Pneumothorax after biopsy Is this a current diagnosis for this admission?: YesPlan: Continue to monitor with serial chest x-ray. Oxygen therapy (3) Carcinoma of unknown primary Is this a current diagnosis for this admission?: YesPlan: Have consulted oncology. Appreciate their input. (4) Atherosclerotic vascular disease Is this a current diagnosis for this admission?: Yes (5) Emphysema of lung Qualifiers: Emphysema type: unspecified Qualified Code(s): J43.9 - Emphysema, unspecified Is this a current diagnosis for this admission?: YesPlan: Continue scheduled nebulized treatments (6) Hypercholesterolemia Is this a current diagnosis for this admission?: Yes (7) History of CVA (cerebrovascular accident) without residual deficits Is this a current diagnosis for this admission?: Yes (8) Obesity Qualifiers: Obesity type: due to excess calories Obesity severity: non-morbid Qualified Code(s): E66.09 - Other obesity due to excess calories Is this a current diagnosis for this admission?: Yes - Time Time Spent with patient: 25-34 minutes Medications reviewed and adjusted accordingly: Yes Anticipated discharge: Home with Homehealth Within: within 24 hours, within 48 hours
--- NOTE | 2017-02-19 08:29 | PDOC PROGRESS REPORT ---
Subjective Progress Note for:: 02/19/17 Subjective:: Doing well this am, did well w/ procedure, 300ml drained. Still w/ SOB, getting up to the restroom Physical Exam Vital Signs: Temp Pulse Resp BP Pulse Ox 97.8 F 87 16 135/77 H 100 02/19/17 00:26 02/19/17 00:26 02/19/17 00:26 02/19/17 00:26 02/19/17 00:26 Intake & Output 02/18/17 02/19/17 02/20/17 06:59 06:59 06:59 Intake Total 1110 Output Total 200 435 Balance -200 675 Weight 94.6 kg General appearance: PRESENT: no acute distress, well-developed, well-nourished Head exam: PRESENT: atraumatic, normocephalic Eye exam: PRESENT: conjunctiva pink, EOMI, PERRLA. ABSENT: scleral icterus Ear exam: PRESENT: normal external ear exam Mouth exam: PRESENT: moist, tongue midline Neck exam: ABSENT: carotid bruit, JVD, lymphadenopathy, thyromegaly Respiratory exam: PRESENT: clear to auscultation chiki. ABSENT: rales, rhonchi, wheezes Cardiovascular exam: PRESENT: RRR. ABSENT: diastolic murmur, rubs, systolic murmur Pulses: PRESENT: normal dorsalis pedis pul Vascular exam: PRESENT: normal capillary refill GI/Abdominal exam: PRESENT: normal bowel sounds, soft. ABSENT: distended, guarding, mass, organolmegaly, rebound, tenderness Rectal exam: PRESENT: deferred Extremities exam: PRESENT: full ROM. ABSENT: calf tenderness, clubbing, pedal edema Neurological exam: PRESENT: alert, awake, oriented to person, oriented to place , oriented to time, oriented to situation, CN II-XII grossly intact. ABSENT: motor sensory deficit Psychiatric exam: PRESENT: appropriate affect, normal mood. ABSENT: homicidal ideation, suicidal ideation Skin exam: PRESENT: dry, intact, warm. ABSENT: cyanosis, rash Results Laboratory Results: 02/18/17 09:28 02/18/17 09:28 02/18/17 02/18/17 09:28 09:28 WBC 8.3 RBC 4.06 Hgb 11.9 L Hct 36.3 MCV 90 MCH 29.3 MCHC 32.7 RDW 13.0 Plt Count 325 Seg Neutrophils % 75.5 Lymphocytes % 9.9 L Monocytes % 12.1 Eosinophils % 2.2 Basophils % 0.3 Absolute Neutrophils 6.3 Absolute Lymphocytes 0.8 Absolute Monocytes 1.0 Absolute Eosinophils 0.2 Absolute Basophils 0.0 Sodium 142.5 Potassium 4.6 Chloride 102 Carbon Dioxide 27 Anion Gap 14 BUN 27 H Creatinine 1.47 H Est GFR ( Amer) 42 L Est GFR (Non-Af Amer) 35 L Glucose 135 H Calcium 9.1 Impressions: Thoracentesis Ultrasound 02/15/17 15:31 IMPRESSION: SUCCESSFUL THORACENTESIS USING ULTRASOUND GUIDANCE. AN 8 [place] CITIZEN APD PIGTAIL CATHETER WAS LEFT IN PLACE. Drainage Catheter Insertion 02/18/17 00:00 IMPRESSION: IMAGE(S) OBTAINED DURING PROCEDURE. Guidance Fluoroscopy 02/18/17 00:00 IMPRESSION: IMAGE(S) OBTAINED DURING PROCEDURE. Assessment & Plan - Diagnosis (1) Malignant pleural effusion Is this a current diagnosis for this admission?: YesPlan: Improved post pleur-x, put in orders for drainage QOD. PT to work with pt today , will need home drainage and home PT (2) Carcinoma of unknown primary Is this a current diagnosis for this admission?: YesPlan: PET will be ordered and date given to pt. Will have f/u in office for next steps of care. Today had long conversation with pt, spent 45 min in discussion - Time Time Spent with patient: 35 or more minutes Critical Time spent with patient: 35 or more minutes Anticipated discharge: Home with Homehealth Within: within 48 hours - Inpatient Certification Based on my medical assessment, after consideration of the patient's comorbidities, presenting symptoms, or acuity I expect that the services needed warrant INPATIENT care.: Yes I certify that my determination is in accordance with my understanding of Medicare's requirements for reasonable and necessary INPATIENT services [42 CFR 412.3e].: Yes Medical Necessity: Failure to Improve With Outpatient Therapy, Need Close Monitoring Due to Risk of Patient Decompensation, Need for Pain Control
[2017-02-19] MEDS: IPRATROPIUM/ALBUTEROL 0.5-2.5 MG/3 ML AMPUL NEB SCH ×3 (08:43→19:41)
[2017-02-19] MEDS: MORPHINE SULFATE 10 MG/ML INJ IV PRN (09:15)
[2017-02-19] MEDS: GUAIFENESIN 600 MG TABLET.SA PO SCH ×2 (09:15→21:33)
--- NOTE | 2017-02-19 11:07 | PDOC PROGRESS REPORT ---
Subjective Progress Note for:: 02/19/17 Subjective:: Patient's report that her breathing is better compared when she came in. Still with some shortness of breath, no nausea or vomiting. Intermittent pain in the rib cage on the right side. No diarrhea, chills nor fever. Physical Exam Vital Signs: Temp Pulse Resp BP Pulse Ox 97.7 F 89 30 H 131/62 H 100 02/19/17 07:59 02/19/17 08:41 02/19/17 08:41 02/19/17 07:59 02/19/17 08:41 Intake & Output 02/18/17 02/19/17 02/20/17 06:59 06:59 06:59 Intake Total 1110 Output Total 200 435 Balance -200 675 Weight 94.6 kg General appearance: PRESENT: no acute distress, cooperative Head exam: PRESENT: normocephalic Eye exam: PRESENT: EOMI Mouth exam: PRESENT: moist, neck supple Neck exam: ABSENT: JVD Respiratory exam: PRESENT: clear to auscultation chiki - Anteriorly bilateral, decreased breath sounds - Lower lung goel.. ABSENT: rhonchi, wheezes Cardiovascular exam: PRESENT: RRR. ABSENT: gallop GI/Abdominal exam: PRESENT: soft. ABSENT: diminished bowel sounds, tenderness Extremities exam: ABSENT: pedal edema Skin exam: PRESENT: dry, warm. ABSENT: cyanosis Results Laboratory Results: 02/18/17 09:28 02/18/17 09:28 Impressions: Thoracentesis Ultrasound 02/15/17 15:31 IMPRESSION: SUCCESSFUL THORACENTESIS USING ULTRASOUND GUIDANCE. AN 8 [place] APD PIGTAIL CATHETER WAS LEFT IN PLACE. Drainage Catheter Insertion 02/18/17 00:00 IMPRESSION: IMAGE(S) OBTAINED DURING PROCEDURE. Guidance Fluoroscopy 02/18/17 00:00 IMPRESSION: IMAGE(S) OBTAINED DURING PROCEDURE. Chest X-Ray 02/19/17 06:00 IMPRESSION: Unchanged left PleurX catheter with about 20% apical pneumothorax and left basilar hydropneumothorax with air-fluid level. Left pleural space air and fluid is similar compared to 02/15/2017 Assessment & Plan - Diagnosis (1) Malignant pleural effusion Is this a current diagnosis for this admission?: Yes (2) Carcinoma of unknown primary Is this a current diagnosis for this admission?: Yes (3) Pneumothorax after biopsy Is this a current diagnosis for this admission?: Yes (4) Atherosclerotic vascular disease Is this a current diagnosis for this admission?: Yes (5) Emphysema of lung Qualifiers: Emphysema type: unspecified Qualified Code(s): J43.9 - Emphysema, unspecified Is this a current diagnosis for this admission?: Yes (6) Hypercholesterolemia Is this a current diagnosis for this admission?: Yes (7) Obesity Qualifiers: Obesity type: due to excess calories Obesity severity: non-morbid Qualified Code(s): E66.09 - Other obesity due to excess calories Is this a current diagnosis for this admission?: Yes (8) Hypertension Qualifiers: Hypertension type: essential hypertension Qualified Code(s): I10 - Essential (primary) hypertension Is this a current diagnosis for this admission?: Yes - Time Time Spent with patient: 25-34 minutes - Plan Summary Plan Summary: Discussed case with radiology. Chest x-ray still unchanged from admission. We will reconsult surgical service to see if the patient's chest tube is working properly. In the meantime continue other medications and supportive care. I will culture the patient's urine.
--- NOTE | 2017-02-20 08:10 | PDOC PROGRESS REPORT ---
Subjective Progress Note for:: 02/20/17 Subjective:: Patient is getting up to the restroom and back, did not work with physical therapy yesterday as she had just had pleural fluid drainage, she does have some pain with that. Otherwise, she is doing well today. We discussed the use of good nutrition. Home health services are being set up. Physical Exam Vital Signs: Temp Pulse Resp BP Pulse Ox 98.2 F 92 17 140/80 H 98 02/19/17 23:53 02/19/17 23:53 02/19/17 23:53 02/19/17 23:53 02/20/17 04:54 Intake & Output 02/19/17 02/20/17 02/21/17 06:59 06:59 06:59 Intake Total 1110 1160 Output Total 435 Balance 675 1160 Weight 94.6 kg 96.8 kg General appearance: PRESENT: no acute distress, well-developed, well-nourished Head exam: PRESENT: atraumatic, normocephalic Eye exam: PRESENT: conjunctiva pink, EOMI, PERRLA. ABSENT: scleral icterus Ear exam: PRESENT: normal external ear exam Mouth exam: PRESENT: moist, tongue midline Neck exam: ABSENT: carotid bruit, JVD, lymphadenopathy, thyromegaly Respiratory exam: PRESENT: clear to auscultation chiki. ABSENT: rales, rhonchi, wheezes Cardiovascular exam: PRESENT: RRR. ABSENT: diastolic murmur, rubs, systolic murmur Pulses: PRESENT: normal dorsalis pedis pul Vascular exam: PRESENT: normal capillary refill GI/Abdominal exam: PRESENT: normal bowel sounds, soft. ABSENT: distended, guarding, mass, organolmegaly, rebound, tenderness Rectal exam: PRESENT: deferred Extremities exam: PRESENT: full ROM. ABSENT: calf tenderness, clubbing, pedal edema Neurological exam: PRESENT: alert, awake, oriented to person, oriented to place , oriented to time, oriented to situation, CN II-XII grossly intact. ABSENT: motor sensory deficit Psychiatric exam: PRESENT: appropriate affect, normal mood. ABSENT: homicidal ideation, suicidal ideation Skin exam: PRESENT: dry, intact, warm. ABSENT: cyanosis, rash Results Laboratory Results: 02/18/17 09:28 02/18/17 09:28 Impressions: Thoracentesis Ultrasound 02/15/17 15:31 IMPRESSION: SUCCESSFUL THORACENTESIS USING ULTRASOUND GUIDANCE. AN 8 [place] APD PIGTAIL CATHETER WAS LEFT IN PLACE. Drainage Catheter Insertion 02/18/17 00:00 IMPRESSION: IMAGE(S) OBTAINED DURING PROCEDURE. Guidance Fluoroscopy 02/18/17 00:00 IMPRESSION: IMAGE(S) OBTAINED DURING PROCEDURE. Chest X-Ray 02/19/17 13:55 IMPRESSION: No change in small left apical pneumothorax and moderate size left basilar hydropneumothorax. Left-sided PleurX catheter in place. Stable volume loss and consolidation left lower lobe. Assessment & Plan - Diagnosis (1) Malignant pleural effusion Is this a current diagnosis for this admission?: YesPlan: The Pleurx catheter seems to be functioning, we will plan for drainage tomorrow most likely, awaiting further analysis on the testing. (2) Carcinoma of unknown primary Is this a current diagnosis for this admission?: YesPlan: Plan for PET/CT as an outpatient, we have given the floor this information, we will need to reiterate this on discharge. I believe she is medically ready, she needs to work with physical therapy a little bit today and then probable discharge tomorrow. I will discuss this with hospitalist team. - Time Time Spent with patient: 35 or more minutes Critical Time spent with patient: 35 or more minutes Anticipated discharge: Home Within: within 24 hours
[2017-02-20] MEDS: IPRATROPIUM/ALBUTEROL 0.5-2.5 MG/3 ML AMPUL NEB SCH ×3 (08:29→20:40)
[2017-02-20] MEDS: GUAIFENESIN 600 MG TABLET.SA PO SCH ×2 (10:33→21:10)
--- NOTE | 2017-02-20 15:55 | PDOC DISCHARGE SUMMARY ---
General - Admit/Disc Date/PCP Admission Date/Primary Care Provider: 02/17/17 13:50 Discharge Date: 02/21/17 - Discharge Diagnosis (1) Malignant pleural effusion Is this a current diagnosis for this admission?: Yes (2) Carcinoma of unknown primary Is this a current diagnosis for this admission?: Yes (3) Pneumothorax after biopsy Is this a current diagnosis for this admission?: Yes (4) Atherosclerotic vascular disease Is this a current diagnosis for this admission?: Yes (5) Emphysema of lung Is this a current diagnosis for this admission?: Yes (6) Hypercholesterolemia Is this a current diagnosis for this admission?: Yes (7) Obesity Is this a current diagnosis for this admission?: Yes (8) Hypertension Is this a current diagnosis for this admission?: Yes - Additional Information Resuscitation Status: Full Code Discharge Diet: Other (Comments) - 2 g sodium diet Discharge Activity: Activity As Tolerated, Balance Activity w/Rest, Slowly Increase Activity Home Medications: Albuterol Sulfate [Proair HFA] 2 puff IH Q4HP PRN 02/16/17 Ipratropium/Albuterol Sulfate [Iprat-Albut 0.5-3(2.5) mg/3 ml] 3 ml IH Q6HP PRN 02/16/17 Umeclidinium Brm/Vilanterol Tr [Anoro Ellipta 62.5-25 Mcg INH] 1 puff IH DAILY 02/16/17 Oxycodone HCl/Acetaminophen [Percocet 5-325 mg Tablet] 1 tab PO Q6HP PRN #30 tablet 02/20/17 Additional Information: Return to the emergency room if shortness of breath recurs or worsens History of Present Illness Patient complains of: Recurrent pleural effusion History of Present Illness: PAKO BLACKMAN is a 76 year old female, who was admitted for pleural effusion in the past treated for possible infection apparently on follow-up was diagnosed with malignant pleural effusion of unknown primary. The patient was sent to radiology for placement of indwelling chest tube. Patient's complicated by small pneumothorax and therefore was referred for observation to the hospitalist. For details please refer to history and physical examination performed by the admitting physician. Hospital Course Hospital Course: The patient was admitted to telemetry. Serial chest x-ray shows persistence of the pleural effusion with small pneumothorax. She had an initial thoracentesis on the day of admission, which about 800 mL of fluid was obtained. A pigtail drain was left and eventually surgery was consulted who changed the catheter into a pleurx via fluoroscopic guidance. Intermittent drainage of fluid was then made. Follow-up chest x-ray reportedly about unchanged in terms of pleural fluid and stable small pneumothorax. Concern was therefore made whether the tube is in the right position and therefore surgery on follow-up reevaluated the tube and upon review of the films, the tube was in the appropriate position and pleural fluid drainage still present. Patient's shortness of breath started to improve subsequently and was cleared by surgical service as well as oncology to be discharge. The rest of the hospital stays unremarkable. Physical Exam Vital Signs: Temp Pulse Resp BP Pulse Ox 97.8 F 94 16 137/75 H 95 02/20/17 12:24 02/20/17 13:39 02/20/17 13:39 02/20/17 12:24 02/20/17 12:24 Intake & Output 02/19/17 02/20/17 02/21/17 06:59 06:59 06:59 Intake Total 1110 1160 Output Total 435 Balance 675 1160 Weight 94.6 kg 96.8 kg General appearance: PRESENT: no acute distress, cooperative Head exam: PRESENT: normocephalic Eye exam: PRESENT: EOMI Mouth exam: PRESENT: moist, neck supple Neck exam: ABSENT: JVD Respiratory exam: PRESENT: decreased breath sounds - Lower lung field, left more than the right Cardiovascular exam: PRESENT: RRR. ABSENT: gallop GI/Abdominal exam: PRESENT: soft. ABSENT: distended Neurological exam: PRESENT: alert, awake, oriented to situation Skin exam: PRESENT: dry, warm. ABSENT: cyanosis Results Laboratory Results: 02/18/17 09:28 02/18/17 09:28 Impressions: Thoracentesis Ultrasound 02/15/17 15:31 IMPRESSION: SUCCESSFUL THORACENTESIS USING ULTRASOUND GUIDANCE. AN 8 URD[place] APD PIGTAIL CATHETER WAS LEFT IN PLACE. Drainage Catheter Insertion 02/18/17 00:00 IMPRESSION: IMAGE(S) OBTAINED DURING PROCEDURE. Guidance Fluoroscopy 02/18/17 00:00 IMPRESSION: IMAGE(S) OBTAINED DURING PROCEDURE. Chest X-Ray 02/19/17 13:55 IMPRESSION: No change in small left apical pneumothorax and moderate size left basilar hydropneumothorax. Left-sided PleurX catheter in place. Stable volume loss and consolidation left lower lobe. Qualifiers PATEINT BEING DISCHARGED WITH ANY OF THE FOLLOWING DIAGNOSIS?: No Plan Discharge Plan: Follow-up with primary care physician as scheduled. Follow-up with Dr. Mayers in one week. Follow-up with Dr. Aden in 1 week. Time Spent: Less than 30 Minutes
--- NOTE | 2017-02-20 16:57 | PDOC PROGRESS REPORT ---
Subjective Progress Note for:: 02/20/17 Subjective:: Patient's report that her breathing is better compared when she came in and better than yesterday. Still with some shortness of breath, no nausea or vomiting. Intermittent pain in the rib cage on the right side. No diarrhea, chills nor fever. Physical Exam Vital Signs: Temp Pulse Resp BP Pulse Ox 97.8 F 94 16 137/75 H 95 02/20/17 12:24 02/20/17 13:39 02/20/17 13:39 02/20/17 12:24 02/20/17 12:24 Intake & Output 02/19/17 02/20/17 02/21/17 06:59 06:59 06:59 Intake Total 1110 1160 Output Total 435 Balance 675 1160 Weight 94.6 kg 96.8 kg General appearance: PRESENT: no acute distress, other - nasal canula oxygen Head exam: PRESENT: normocephalic Eye exam: PRESENT: EOMI Mouth exam: PRESENT: moist, neck supple Neck exam: ABSENT: JVD Respiratory exam: PRESENT: decreased breath sounds - lower lung goel L>R Cardiovascular exam: PRESENT: RRR GI/Abdominal exam: PRESENT: normal bowel sounds, soft Neurological exam: PRESENT: alert, awake, oriented to situation Skin exam: PRESENT: dry, warm. ABSENT: cyanosis Results Laboratory Results: 02/18/17 09:28 02/18/17 09:28 Impressions: Thoracentesis Ultrasound 02/15/17 15:31 IMPRESSION: SUCCESSFUL THORACENTESIS USING ULTRASOUND GUIDANCE. AN 8 [place] APD PIGTAIL CATHETER WAS LEFT IN PLACE. Drainage Catheter Insertion 02/18/17 00:00 IMPRESSION: IMAGE(S) OBTAINED DURING PROCEDURE. Guidance Fluoroscopy 02/18/17 00:00 IMPRESSION: IMAGE(S) OBTAINED DURING PROCEDURE. Chest X-Ray 02/19/17 13:55 IMPRESSION: No change in small left apical pneumothorax and moderate size left basilar hydropneumothorax. Left-sided PleurX catheter in place. Stable volume loss and consolidation left lower lobe. Assessment & Plan - Diagnosis (1) Malignant pleural effusion Is this a current diagnosis for this admission?: Yes (2) Carcinoma of unknown primary Is this a current diagnosis for this admission?: Yes (3) Pneumothorax after biopsy Is this a current diagnosis for this admission?: Yes (4) Atherosclerotic vascular disease Is this a current diagnosis for this admission?: Yes (5) Emphysema of lung Qualifiers: Emphysema type: unspecified Qualified Code(s): J43.9 - Emphysema, unspecified Is this a current diagnosis for this admission?: Yes (6) Hypercholesterolemia Is this a current diagnosis for this admission?: Yes (7) Obesity Qualifiers: Obesity type: due to excess calories Obesity severity: non-morbid Qualified Code(s): E66.09 - Other obesity due to excess calories Is this a current diagnosis for this admission?: Yes (8) Hypertension Qualifiers: Hypertension type: essential hypertension Qualified Code(s): I10 - Essential (primary) hypertension Is this a current diagnosis for this admission?: Yes - Time Time Spent with patient: Less than 15 minutes - Plan Summary Plan Summary: Cont. current meds and supportive care. We will d/c home when cleared by oncology. Spoke w/ Surgery, and reports catheter is functioning.
--- NOTE | 2017-02-21 08:23 | PDOC PROGRESS REPORT ---
Subjective Progress Note for:: 02/21/17 Subjective:: Patient is doing better today, was getting up to the bathroom and back Physical Exam Vital Signs: Temp Pulse Resp BP Pulse Ox 97.4 F 88 17 134/63 H 100 02/21/17 00:24 02/21/17 00:24 02/21/17 00:24 02/21/17 00:24 02/21/17 00:24 Intake & Output 02/20/17 02/21/17 02/22/17 06:59 06:59 06:59 Intake Total 1160 1230 Balance 1160 1230 Weight 96.8 kg 96.9 kg General appearance: PRESENT: no acute distress, well-developed, well-nourished Head exam: PRESENT: atraumatic, normocephalic Eye exam: PRESENT: conjunctiva pink, EOMI, PERRLA. ABSENT: scleral icterus Ear exam: PRESENT: normal external ear exam Mouth exam: PRESENT: moist, tongue midline Neck exam: ABSENT: carotid bruit, JVD, lymphadenopathy, thyromegaly Respiratory exam: PRESENT: clear to auscultation chiki. ABSENT: rales, rhonchi, wheezes Cardiovascular exam: PRESENT: RRR. ABSENT: diastolic murmur, rubs, systolic murmur Pulses: PRESENT: normal dorsalis pedis pul Vascular exam: PRESENT: normal capillary refill GI/Abdominal exam: PRESENT: normal bowel sounds, soft. ABSENT: distended, guarding, mass, organolmegaly, rebound, tenderness Rectal exam: PRESENT: deferred Extremities exam: PRESENT: full ROM. ABSENT: calf tenderness, clubbing, pedal edema Neurological exam: PRESENT: alert, awake, oriented to person, oriented to place , oriented to time, oriented to situation, CN II-XII grossly intact. ABSENT: motor sensory deficit Psychiatric exam: PRESENT: appropriate affect, normal mood. ABSENT: homicidal ideation, suicidal ideation Skin exam: PRESENT: dry, intact, warm. ABSENT: cyanosis, rash Results Laboratory Results: 02/18/17 09:28 02/18/17 09:28 Impressions: Thoracentesis Ultrasound 02/15/17 15:31 IMPRESSION: SUCCESSFUL THORACENTESIS USING ULTRASOUND GUIDANCE. AN 8 [place] APD PIGTAIL CATHETER WAS LEFT IN PLACE. Drainage Catheter Insertion 02/18/17 00:00 IMPRESSION: IMAGE(S) OBTAINED DURING PROCEDURE. Guidance Fluoroscopy 02/18/17 00:00 IMPRESSION: IMAGE(S) OBTAINED DURING PROCEDURE. Chest X-Ray 02/19/17 13:55 IMPRESSION: No change in small left apical pneumothorax and moderate size left basilar hydropneumothorax. Left-sided PleurX catheter in place. Stable volume loss and consolidation left lower lobe. Assessment & Plan - Diagnosis (1) Malignant pleural effusion Is this a current diagnosis for this admission?: YesPlan: Recent cytology was negative, but previous cytology did show adenocarcinoma, further testing is pending on the original block. (2) Carcinoma of unknown primary Is this a current diagnosis for this admission?: YesPlan: PET scan planned as an outpatient, from an oncologic standpoint she could be discharged today, we will make arrangements for follow-up. - Time Time Spent with patient: 35 or more minutes Critical Time spent with patient: 35 or more minutes
[2017-02-21] MEDS: GUAIFENESIN 600 MG TABLET.SA PO SCH (09:02)
[2017-02-21] MEDS: IPRATROPIUM/ALBUTEROL 0.5-2.5 MG/3 ML AMPUL NEB SCH ×2 (09:07→14:05)
--- NOTE | 2017-02-21 10:09 | PDOC PROGRESS REPORT ---
Subjective Progress Note for:: 02/21/17 Subjective:: Patient voices no new complaints. Able to stand and go around the room. Denies any chills or fever, nausea or vomiting. Shortness of breath has improved. Physical Exam Vital Signs: Temp Pulse Resp BP Pulse Ox 98.4 F 93 16 144/85 H 98 02/21/17 09:30 02/21/17 09:30 02/21/17 09:30 02/21/17 09:30 02/21/17 09:30 Intake & Output 02/20/17 02/21/17 02/22/17 06:59 06:59 06:59 Intake Total 1160 1230 Balance 1160 1230 Weight 96.8 kg 96.9 kg General appearance: PRESENT: no acute distress, cooperative, other - Nasal cannula oxygen Head exam: PRESENT: normocephalic Eye exam: PRESENT: EOMI Mouth exam: PRESENT: moist, neck supple Neck exam: ABSENT: JVD Respiratory exam: PRESENT: decreased breath sounds - Left lower lung field. ABSENT: rhonchi, wheezes Cardiovascular exam: PRESENT: RRR. ABSENT: gallop GI/Abdominal exam: PRESENT: normal bowel sounds, soft. ABSENT: distended Neurological exam: PRESENT: alert, awake, oriented to situation Skin exam: PRESENT: dry, warm. ABSENT: cyanosis Results Laboratory Results: 02/18/17 09:28 02/18/17 09:28 02/19/17 13:25 Clean Catch Midstream Urine Culture - Final NO GROWTH 2 DAYS Impressions: Thoracentesis Ultrasound 02/15/17 15:31 IMPRESSION: SUCCESSFUL THORACENTESIS USING ULTRASOUND GUIDANCE. AN 8 [place] APD PIGTAIL CATHETER WAS LEFT IN PLACE. Drainage Catheter Insertion 02/18/17 00:00 IMPRESSION: IMAGE(S) OBTAINED DURING PROCEDURE. Guidance Fluoroscopy 02/18/17 00:00 IMPRESSION: IMAGE(S) OBTAINED DURING PROCEDURE. Chest X-Ray 02/19/17 13:55 IMPRESSION: No change in small left apical pneumothorax and moderate size left basilar hydropneumothorax. Left-sided PleurX catheter in place. Stable volume loss and consolidation left lower lobe. Assessment & Plan - Diagnosis (1) Malignant pleural effusion Is this a current diagnosis for this admission?: Yes (2) Carcinoma of unknown primary Is this a current diagnosis for this admission?: Yes (3) Pneumothorax after biopsy Is this a current diagnosis for this admission?: Yes (4) Atherosclerotic vascular disease Is this a current diagnosis for this admission?: Yes (5) Emphysema of lung Qualifiers: Emphysema type: unspecified Qualified Code(s): J43.9 - Emphysema, unspecified Is this a current diagnosis for this admission?: Yes (6) Hypercholesterolemia Is this a current diagnosis for this admission?: Yes (7) Obesity Qualifiers: Obesity type: due to excess calories Obesity severity: non-morbid Qualified Code(s): E66.09 - Other obesity due to excess calories Is this a current diagnosis for this admission?: Yes (8) Hypertension Qualifiers: Hypertension type: essential hypertension Qualified Code(s): I10 - Essential (primary) hypertension Is this a current diagnosis for this admission?: Yes - Time Time Spent with patient: 15-24 minutes - Plan Summary Plan Summary: Discontinue home today. Please refer to the discharge summary done 02/20/2017 for details and instructions.
[2017-02-21 13:19] VITALS: BP 139/71
== END 2017-02-21 15:02 | disposition home or self-care (01) | DRG 843 ==
LOC: ER 14:01 → EH 19:15 → UNDOADMOB 19:15 → EH 19:23 → UNDOADMOB 19:23 → EH 20:32 → 4N 20:32 → EH 02-17 13:50 → OBSVTOIN 02-17 13:50 → 4N 02-17 13:50
PROVIDERS: ADMIT Family Medicine; ATTEND Family Medicine
PROC: 0W9B30Z Drainage of Left Pleural Cavity with Drainage Device, Percutaneous Approach (ICD-10-PCS; principal; 2017-02-15)
PROC: 0W9B30Z Drainage of Left Pleural Cavity with Drainage Device, Percutaneous Approach (ICD-10-PCS; 2017-02-18)
DX: C80.1 Malignant (primary) neoplasm, unspecified (principal); J18.1 Lobar pneumonia, unspecified organism; J95.811 Postprocedural pneumothorax; J91.0 Malignant pleural effusion; Y84.8 Other medical procedures as the cause of abnormal reaction of the patient, or of later complication, without mention of misadventure at the time of the procedure; J43.9 Emphysema, unspecified; E78.00 Pure hypercholesterolemia, unspecified; I10 Essential (primary) hypertension; E66.09 Other obesity due to excess calories; Z68.28 Body mass index [BMI] 28.0-28.9, adult; Z99.81 Dependence on supplemental oxygen; Z86.73 Personal history of transient ischemic attack (TIA), and cerebral infarction without residual deficits; Z87.891 Personal history of nicotine dependence; Z82.49 Family history of ischemic heart disease and other diseases of the circulatory system
CPT/HCPCS: 32550; 32555; 32557; 36415; 71010; 71020; 77001; 80048; 80053; 81001; 82550; 82553; 83735; 83880; 84484; 85025; 85610; 85730; 87040; 87086; 88305; 89050; 93005; 93010; 94640; 94667; 94799; 99285; A4300; G0378; J1940; J2250; J2270; J2543; J3370; J3490; J7060; J7620

== ENCOUNTER 2017-02-24 08:47 | Emergency (ER) | payer MEDICARE, BC, OTHER ==
--- NOTE | 2017-02-24 09:42 | ER Document Report ---
ED General - General Chief Complaint: Shortness Of Breath Stated Complaint: SHORTNESS OF BREATH Mode of Arrival: Medic Information source: Patient Notes: 76-year-old female with malignant pleural effusion who has a pigtail catheter in place from previous admission presents with complaints of shortness of breath. Patient notes that she was supposed to have this drained at home on . Was not done. Patient notes she is having difficulty breathing denies any fevers chills nausea vomiting or diarrhea TRAVEL OUTSIDE OF THE [place] IN LAST 30 DAYS: No - HPI Onset: Last week Onset/Duration: Persistent, Worse Quality of pain: No pain Severity: Moderate Pain Level: Denies Associated symptoms: Productive cough, Shortness of breath Exacerbated by: Walking Relieved by: Denies Similar symptoms previously: Yes Recently seen / treated by doctor: Yes - Related Data Allergies/Adverse Reactions: No Known Allergies Allergy (Unverified 10/16/16 14:03) Past Medical History - Social History Smoking Status: Never Smoker Cigarette use (# per day): No Chew tobacco use (# tins/day): No Smoking Education Provided: No Family History: Hypertension - Past Medical History Cardiac Medical History: Reports: Hx Hypertension - Reported present but the patient denies. She is to be on diuretics., Hx Peripheral Vascular Disease Denies: Hx Congestive Heart Failure Pulmonary Medical History: Reports: Hx COPD Renal/ Medical History: Denies: Hx Peritoneal Dialysis Psychiatric Medical History: Denies: Hx Depression Past Surgical History: Reports: Hx Orthopedic Surgery - toes 1980, Other - Thoracentesis, chest tube - Immunizations Hx Diphtheria, Pertussis, Tetanus Vaccination: Yes Review of Systems - Review of Systems Notes: REVIEW OF SYSTEMS: CONSTITUTIONAL : Denies fever, chills, or sweats. Denies recent illness. EENT: Denies eye, ear, throat, or mouth pain or symptoms. Denies nasal or sinus congestion or discharge. Denies throat, tongue, or mouth swelling or difficulty swallowing. CARDIOVASCULAR: Denies chest pain. Denies palpitations or racing or irregular heart beat. Denies ankle edema. RESPIRATORY: Mr. saxena breath difficulty breathing GASTROINTESTINAL: Denies abdominal pain or distention. Denies nausea, vomiting , or diarrhea. Denies blood in vomitus, stools, or per rectum. Denies black, tarry stools. Denies constipation. GENITOURINARY: Denies difficulty urinating, painful urination, burning, frequency, blood in urine, or discharge. FEMALE GENITOURINARY: Denies vaginal bleeding, heavy or abnormal periods, irregular periods. Denies vaginal discharge or odor. MUSCULOSKELETAL: Denies back or neck pain or stiffness. Denies joint pain or swelling. SKIN: Denies rash, lesions or sores. HEMATOLOGIC : Denies easy bruising or bleeding. LYMPHATIC: Denies swollen, enlarged glands. NEUROLOGICAL: Denies confusion or altered mental status. Denies passing out or loss of consciousness. Denies dizziness or lightheadedness. Denies headache. Denies weakness or paralysis or loss of use of either side. Denies problems with gait or speech. Denies sensory loss, numbness, or tingling. Denies seizures. PSYCHIATRIC: Denies anxiety or stress. Denies depression, suicidal ideation, or homicidal ideation. ALL OTHER SYSTEMS REVIEWED AND NEGATIVE. Dictation was performed using [employer] voice recognition software PHYSICAL EXAMINATION: GENERAL: Well-appearing, well-nourished and in no acute distress. HEAD: Atraumatic, normocephalic. EYES: Pupils equal round and reactive to light, extraocular movements intact, conjunctiva are normal. ENT: Nares patent, oropharynx clear without exudates. Moist mucous membranes. NECK: Normal range of motion, supple without lymphadenopathy LUNGS: Coarse rhonchi bilateral bases left worse than right HEART: Regular rate and rhythm without murmurs ABDOMEN: Soft, nontender, nondistended abdomen. No guarding, no rebound. No masses appreciated. Female : deferred Musculoskeletal: Normal range of motion, no pitting or edema. No cyanosis. NEUROLOGICAL: Cranial nerves grossly intact. Normal speech, normal gait. Normal sensory, motor exams PSYCH: Normal mood, normal affect. SKIN: Warm, Dry, normal turgor, no rashes or lesions noted. Physical Exam - Vital signs Vitals: Pulse Ox 99 02/24/17 08:50 Course - Re-evaluation Re-evalutation: 02/24/17 10:08 It appears patient's effusion was not drained at home as he was supposed to be, 300 mL of effusion was drained with no complications. X-ray pending 02/24/17 12:[address] Mendoza who will contact hospice care for home health 02/24/17 12:00 Patient is happy with this plan will discharge at this time Patient satting 100% on room air After performing a Medical Screening Examination, I estimate there is LOW risk for ACUTE CORONARY SYNDROME, RESPIRATORY FAILURE, SEPSIS OR MENINGITIS, thus I consider the discharge disposition reasonable. The patient and I have discussed the diagnosis and risks, and we agree with discharging home with close follow- up. We also discussed returning to the Emergency Department immediately if new or worsening symptoms occur. We have discussed the symptoms which are most concerning (e.g., changing or worsening pain, trouble swallowing or breathing, neck stiffness, fever) that necessitate immediate return. - Vital Signs Vital signs: Temp Pulse Resp BP Pulse Ox 26 H 139/77 H 100 02/24/17 11:01 02/24/17 11:00 02/24/17 11:01 - Laboratory Result Diagrams: 02/24/17 10:40 02/24/17 10:40 Laboratory results interpreted by me: 02/24/17 02/24/17 10:40 10:40 Seg Neutrophils % 79.3 H Lymphocytes % 6.1 L BUN 40 H Creatinine 1.40 H Est GFR ( Amer) 44 L Est GFR (Non-Af Amer) 37 L Glucose 126 H AST 45 H ALT 53 H Albumin 3.0 L - Diagnostic Test Radiology reviewed: Image reviewed, Reports reviewed Discharge - Discharge Clinical Impression: Malignant pleural effusion, Shortness of breath Condition: Stable Disposition: HOME, SELF-CARE Additional Instructions: Please follow-up with the care plan provided to you by Dr. Mendoza
[2017-02-24 10:49] LABS: ABSOLUTE EOSINOPHILS # (AUTO) 0.2 10^3/uL (0.0-0.6); ABSOLUTE LYMPHOCYTES (AUTO) 0.6 10^3/uL (0.5-4.7); ABSOLUTE MONOCYTES (AUTO) 1.2 10^3/uL (0.1-1.4); ABSOLUTE NEUT (AUTO) 7.7 10^3/uL (1.7-8.2); BASOPHILS % (AUTO) 0.3 % (0-2); EOSINOPHILS % (AUTO) 1.8 % (0-6); HEMATOCRIT 39.6 % (36.0-47.0); HEMOGLOBIN 13.1 g/dL (12.0-15.5); HGB HCT DIFFERENCE -0.3; LYMPHOCYTES % (AUTO) 6.1 % (13-45); MEAN CORPUSCULAR HEMOGLOBIN 29.4 pg (27.0-33.4); MEAN CORPUSCULAR HGB CONC 32.9 g/dL (32.0-36.0); MEAN CORPUSCULAR VOLUME 89 fl (80-97); MONOCYTES % (AUTO) 12.5 % (3-13); RED BLOOD COUNT 4.45 10^6/uL (3.72-5.28); RED CELL DISTRIBUTION WIDTH 13.2 % (11.5-14.0); SEGMENTED NEUTROPHILS % (AUTO) 79.3 % (42-78); WHITE BLOOD COUNT 9.7 10^3/uL (4.0-10.5)
--- NOTE | 2017-02-24 10:51 | EKG REPORT ---
SEVERITY:- OTHERWISE NORMAL ECG - SINUS RHYTHM ABERRANT COMPLEX, POSSIBLY SUPRAVENTRICULAR : Confirmed by: Ashkan White 24-Feb-2017 10:50:33
[2017-02-24 11:12] LABS: ALANINE AMINOTRANSFERASE 53 U/L (9-52); ALKALINE PHOSPHATASE 81 U/L (38-126); ANION GAP 14 (5-19); ASPARTATE AMINO TRANSFERASE 45 U/L (14-36); BILIRUBIN,DIRECT 0.3 mg/dL (0.0-0.4); BILIRUBIN,TOTAL 0.6 mg/dL (0.2-1.3); BLOOD UREA NITROGEN 40 mg/dL (7-20); CALCIUM 9.4 mg/dL (8.4-10.2); CARBON DIOXIDE 26 mmol/L (22-30); CHLORIDE 102 mmol/L (98-107); CREATINE KINASE 59 U/L (30-135); GLUCOSE 126 mg/dL (75-110); POTASSIUM 4.6 mmol/L (3.6-5.0); SODIUM 142.1 mmol/L (137-145); TOTAL PROTEIN 6.5 g/dL (6.3-8.2)
[2017-02-24 11:38] LABS: CREATINE KINASE MB 1.11 ng/mL (<4.55); TROPONIN I < 0.012 ng/mL
[2017-02-24 13:38] VITALS: BP 149/89
== END 2017-02-24 13:38 | disposition home or self-care (01) ==
LOC: ER 08:47
DX: C80.1 Malignant (primary) neoplasm, unspecified (principal); J91.0 Malignant pleural effusion; R06.02 Shortness of breath; R05 Cough; J44.9 Chronic obstructive pulmonary disease, unspecified
CPT/HCPCS: 36415; 71010; 80053; 82550; 82553; 83880; 84484; 85025; 93005; 93010; 99285

== ENCOUNTER → 2017-03-01 | Outpatient (CLI) | payer MEDICARE, BC | LOC: RAD 18:07 | PROVIDERS: ATTEND Internal Medicine | DX: C80.1 Malignant (primary) neoplasm, unspecified (principal); J91.0 Malignant pleural effusion | CPT/HCPCS: 78815; A9552 ==